=== PATIENT | female | born 2005 | race Hispanic/Latino ===

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

== ENCOUNTER → 2024-01-10 11:29 | Outpatient (CLI) | payer OTHER, SELFPAY ==
[2024-01-10 13:28] LABS: Hematocrit 35.1 % (36-46); Hemoglobin 11.9 g/dL (12.0-16.0); Mean Corpuscular HGB Conc 33.8 % (30-36); Mean Corpuscular Hemoglobin 29.3 PG (26-34); Mean Corpuscular Volume 86.8 fL (80-100); Platelet Count 316 X10^3/uL (150-400); Red Blood Cell Count 4.05 X10^6/uL (4.0-5.2); Red Cell Distribution Width 13.1 % (11.6-14.8); White Blood Cell Count 11.1 X10^3/uL (4.5-11.0)
[2024-01-10 13:52] LABS: GTT (PREG) 1 Hour PP 50gm Dose 100 mg/dL (76-139)
== END ==
PROVIDERS: Family Provider Family Medicine; PCP Family Medicine; Referring Provider Family Medicine; Visit Provider Family Medicine
DX: Z34.80 Encounter for supervision of other normal pregnancy, unspecified trimester (principal)
CPT/HCPCS: 36415; 82950; 85027

== ENCOUNTER 2024-01-18 21:10 | Outpatient (CLI) | payer OTHER, SELFPAY ==
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
== END 2024-01-18 22:25 | disposition home or self-care (01) ==
LOC: OB 01-22 10:27
PROVIDERS: Family Provider Specialist; PCP Specialist; Referring Provider Specialist; Visit Provider Specialist
DX: O26.892 Other specified pregnancy related conditions, second trimester (principal); W18.30XA Fall on same level, unspecified, initial encounter; Z3A.27 27 weeks gestation of pregnancy
CPT/HCPCS: 59025; G0378; G0379

== ENCOUNTER 2024-01-19 00:32 | Emergency (ER) | payer OTHER, SELFPAY ==
[2024-01-19 00:49] VITALS: BP 117/63; PULSE 92; RESP 18; TEMP 36.2; O2SAT 98; BMI 34.9
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
[2024-01-19] MEDS: LIDOCAINE 2% (GLYDO) 6 ML GEL TOP (02:23)
[2024-01-19] MEDS: ACETAMINOPHEN 325 MG TABLET 975 MG PO (02:23)
== END 2024-01-19 02:24 | disposition home or self-care (01) ==
PROVIDERS: Emergency Provider Emergency Medicine; Family Provider Specialist; PCP Specialist
DX: O26.893 Other specified pregnancy related conditions, third trimester (principal); S80.212A Abrasion, left knee, initial encounter; S80.211A Abrasion, right knee, initial encounter; Z3A.28 28 weeks gestation of pregnancy; W01.0XXA Fall on same level from slipping, tripping and stumbling without subsequent striking against object, initial encounter; Y93.02 Activity, running
CPT/HCPCS: 99283

== ENCOUNTER → 2024-02-22 12:00 | Outpatient (CLI) | payer OTHER, SELFPAY ==
[2024-02-22 12:49] LABS: Add Manual Diff / Slide Review NO; Basophils Absolute Auto 0 /uL (0-100); Basophils Percent Auto 0.3 % (0-2); Eosinophils Absolute Auto 100 /uL (0-450); Eosinophils Percent Auto 0.7 % (2-4); Hemoglobin 11.8 g/dL (12.0-16.0); Lymphocytes Absolute Auto 2200 /uL (1100-4500); Lymphocytes Percent Auto 20.6 % (25-40); Mean Corpuscular HGB Conc 33.6 % (30-36); Mean Corpuscular Hemoglobin 27.9 PG (26-34); Mean Corpuscular Volume 82.8 fL (80-100); Monocytes Absolute Auto 500 /uL (0-900); Monocytes Percent Auto 4.7 % (3-14); Neutrophils Absolute Auto 7700 /uL (1500-7000); Neutrophils Percent Auto 73.7 % (50-75); Platelet Count 288 X10^3/uL (150-400); Red Blood Cell Count 4.23 X10^6/uL (4.0-5.2); Red Cell Distribution Width 13.9 % (11.6-14.8); White Blood Cell Count 10.4 X10^3/uL (4.5-11.0)
[2024-02-22 13:09] LABS: HEMOLYSIS < 15 (0-50); Iron 46 ug/dL (37-170)
[2024-02-22 13:20] LABS: Percent Iron Saturation 8 % (15-50); Total Iron Binding Capacity 577 ug/dL (265-497); Transferrin 480 mg/dL (206-381)
[2024-02-22 13:48] LABS: Ferritin 4 ng/mL (6-137)
== END ==
PROVIDERS: Family Provider Specialist; PCP Family Medicine; Referring Provider Family Medicine; Visit Provider Family Medicine
DX: Z34.80 Encounter for supervision of other normal pregnancy, unspecified trimester (principal)
CPT/HCPCS: 36415; 82728; 83540; 83550; 85025

== ENCOUNTER 2024-03-03 18:35 | Emergency (ER) | payer OTHER, SELFPAY ==
[2024-03-03 18:45] VITALS: BP 126/81; PULSE 92; RESP 16; TEMP 37.2; O2SAT 98; BMI 36.8
[2024-03-03 19:23] LABS: COVID19 -Nasal RAPID Negative (Negative)
[2024-03-03 19:47] LABS: Alanine Aminotransferase 18 IU/L (<35); Albumin 3.6 g/dL (3.5-5.0); Alkaline Phosphatase 125 U/L (38-126); Aspartate Aminotransferase 21 IU/L (14-36); BUN Creatinine Ratio 17.9 (6-22); Bilirubin Total 0.3 mg/dL (0.2-1.3); Blood Urea Nitrogen 7 mg/dL (7-17); Calcium 8.8 mg/dL (8.4-10.2); Carbon Dioxide 17 mmol/L (22-32); Chloride 110 mmol/L (98-107); Estimated Glomerular Filt Rate > 60 mL/min (>60); Globulin 3.6 g/dL (1.7-4.1); Glucose 91 mg/dL (70-100); HEMOLYSIS < 15 (0-50); Lipase 38 U/L (23-300); Potassium 3.9 mmol/L (3.4-5.1); Sodium 134 mmol/L (137-145); Total Protein 7.2 g/dL (6.3-8.2)
[2024-03-03 19:49] LABS: Add Manual Diff / Slide Review NO; Basophils Absolute Auto 100 /uL (0-100); Basophils Percent Auto 0.5 % (0-2); Eosinophils Absolute Auto 0 /uL (0-450); Eosinophils Percent Auto 0.2 % (2-4); Hematocrit 35.7 % (36-46); Hemoglobin 11.7 g/dL (12.0-16.0); Lymphocytes Absolute Auto 1700 /uL (1100-4500); Lymphocytes Percent Auto 14.8 % (25-40); Mean Corpuscular HGB Conc 32.8 % (30-36); Mean Corpuscular Hemoglobin 27.1 PG (26-34); Mean Corpuscular Volume 82.6 fL (80-100); Monocytes Absolute Auto 500 /uL (0-900); Monocytes Percent Auto 4.3 % (3-14); Neutrophils Absolute Auto 9100 /uL (1500-7000); Neutrophils Percent Auto 80.2 % (50-75); Platelet Count 302 X10^3/uL (150-400); Red Blood Cell Count 4.32 X10^6/uL (4.0-5.2); Red Cell Distribution Width 13.9 % (11.6-14.8); White Blood Cell Count 11.3 X10^3/uL (4.5-11.0)
[2024-03-03] MEDS: SODIUM CHLORIDE 0.9% 1,000 ML 1000 ML IV (19:59)
[2024-03-03 20:27] VITALS: PULSE 68; O2SAT 99
[2024-03-03 20:30] VITALS: PULSE 70; O2SAT 99
[2024-03-03 20:49] VITALS: BP 118/67; PULSE 87; O2SAT 99
--- NOTE | 2024-03-03 20:58 | PC.NURSE ---
ambulated to the restroom and did not appear to be unsteady with her gait.
[2024-03-03 21:19] LABS: Ictotest Urine Negative (Negative)
[2024-03-03 21:21] LABS: Bacteria Urine Occasional (0-1); RBC Urine None Seen (0-5/HPF); Squamous Epithelial Cell Urine 0-1 /HPF (0-5/HPF); Urine Volume 10mL (spun); WBC Urine 5-10/HPF (0-5/HPF)
[2024-03-03 21:22] LABS: Mucus Urine 3+ (Negative)
[2024-03-03 21:24] LABS: Culture Indicated Urine Specimen Cultured
--- NOTE | 2024-03-03 22:04 | ED.ABDPAIN ---
HPI - Abdominal Pain General Chief Complaint: Dizziness Stated Complaint: 34 weeks ,unable to keep water down Time Seen by Provider: 03/03/24 19:47 Source: patient Mode of arrival: Ambulatory History of Present Illness HPI narrative: Patient is a 18-year-old female currently 34 weeks presenting today with nausea vomiting. He reports that she only had abdominal pain when she was vomiting. She is Zofran at home she vomited despite it. No diarrhea no fever no chills no chest pain palpitations or other symptoms. She has no vaginal discharge. She has been receiving care with . No complications with . She reports that she used to get UTIs frequently before she was . Related Data Home Medications Medication Instructions Recorded Confirmed vitamin-ferrous sulfate tab PO 09/14/23 02/22/24 27 mg iron-folic acid 0.8 mg tablet Previous Rx's Medication Instructions Recorded cetirizine 10 mg capsule (Zyrtec) 10 mg PO DAILY PRN allergy 12/27/23 symptoms #30 caps hydrocortisone 1 % lotion 1 applic topical BID PRN Eczema 12/27/23 #120 mL metoclopramide HCl 5 mg tablet 5 mg PO QAC #30 tabs 12/27/23 (Reglan) famotidine 20 mg tablet 20 mg PO DAILY #30 tabs 01/22/24 sertraline 25 mg tablet 25 mg PO DAILY #90 tabs 02/01/24 ondansetron 4 mg disintegrating 4 mg PO Q8H #60 tabs 02/08/24 tablet cephalexin 500 mg capsule 500 mg PO BID 7 days #14 caps 03/03/24 ondansetron 4 mg disintegrating 4 mg PO Q8H PRN nausea and 03/03/24 tablet vomiting #10 tabs Allergies Allergy/AdvReac Type Severity Reaction Status Date / Time adhesive Allergy Blister Verified 02/22/24 11:13 Patient History Medical History Unilateral headache Anxiety Intentional self-harm Depression SAB (spontaneous ) (~04/2023) Acute streptococcal pharyngitis Surgical History [place] teeth extracted (~08/2022) Family History Mother Previous section Bipolar disorder Gestational diabetes Anemia affecting Mental health problem Father Family estrangement Mental health problem Grandmother Dental disease Family/Other Down syndrome Sister Mental health problem Grandfather History of heart disease Hyperlipidemia Hypertension Grandfather Hyperlipidemia Stroke Social History marital status: number of children: 0 household members: spouse lives independently: Yes caregiver/support person: No housing: apartment pets and animals: Yes (2 cats, managing litter box) education level: high school occupational status: unemployed current occupational exposures/hazards: No special juan needs: No travel history: recent seatbelt use: always water heater temp set < 120 deg: Yes working smoke detector in home: Yes fire extinguisher in home: No carbon monox detector in home: Yes firearms in home: No do you feel safe at home: Yes Smoking Status: Former smoker Tobacco: How many years used: 1 second hand exposure: Yes (mother smokes, but isn't around pt much) alcohol intake: former substance use type: marijuana during the past year weight has: other well-balanced diet: about half the time daily servings fruits/ve-4 caffeine: No Type(s) of exercise: walking frequency: 3-4 times per week Smoking Status: Former smoker alcohol intake frequency: other Substance Use Type: marijuana Exam Initial Vital Signs Initial Vital Signs: Vital Signs Temperature 99.0 F 03/03/24 18:45 Pulse Rate 92 H 03/03/24 18:45 Respiratory Rate 16 03/03/24 18:45 Blood Pressure 126/81 03/03/24 18:45 Pulse Oximetry 98 03/03/24 18:45 Oxygen Delivery Method Room Air 03/03/24 18:45 GENERAL: Alert well-appearing 18-year-old female she has received IV fluids and Zofran at this point and in no acute distress. HEENT: Head atraumatic,EOMI, pupils reactive, face symmetric, moist mucous membranes CARDIOVASCULAR: Regular rate and rhythm without murmurs, rubs or gallops. RESPIRATORY: Breath sounds equal bilaterally, no wheezes rales or rhonchi. ABDOMEN: Soft, gravid nontender EXTREMITIES: Normal range of motion, no clubbing or edema. Neurovascularly intact NEUROLOGICAL: Alert and oriented x4.Normal gait and speech. SKIN: Warm, dry, no laceration, no petechiae, no rashes or lesions. Course Orders Ordered: ED Orders 03/03/24 19:25 Complete Blood Count AUTO DIFF Stat Comprehensive Metabolic Panel Stat Lipase Stat 03/03/24 21:05 Ictotest Urine Stat Urine Culture Stat Urine Microscopic Stat Discontinued Medications Sodium Chloride (Normal Saline 0.9%) 1,000 mls @ 1,000 mls/hr IV BOLUS ONE Stop: 03/03/24 19:52 Last Infusion: 03/03/24 20:25 Dose: Infused Documented By: Admin: 03/03/24 19:59 Dose: 1,000 mls/hr Documented By: ABHINAV Ceftriaxone Sodium 1,000 mg/ (Sodium Chloride) 100 mls @ 200 mls/hr IV NOW ONE Stop: 03/03/24 22:11 Last Infusion: 03/03/24 23:14 Dose: Infused Documented By: Admin: 03/03/24 22:32 Dose: 200 mls/hr Documented By: ELISSA Ondansetron HCl (Ondansetron 4 Mg/2 Ml Inj) 4 mg IV NOW PRN PRN Reason: Nausea And Vomiting Ondansetron HCl (Ondansetron 4 Mg Odt) 4 mg PO NOW PRN PRN Reason: Nausea And Vomiting Vital Signs Vital signs: Vital Signs - 8 hr 03/03/24 20:27 03/03/24 20:30 03/03/24 20:49 Pulse Rate 68 70 Respiratory Rate Blood Pressure 118/67 Pulse Oximetry 99 99 Oxygen Delivery Method 03/03/24 20:49 03/03/24 22:25 03/03/24 23:08 Pulse Rate 87 65 80 Respiratory Rate 18 18 Blood Pressure 128/68 102/55 L Pulse Oximetry 99 99 98 Oxygen Delivery Method Room Air Room Air MDM - Abdominal Pain Lab Data 03/03/24 19:25 03/03/24 19:25 Labs: Lab Results 03/03/24 03/03/24 03/03/24 Range/Units 18:48 19:25 21:05 WBC 11.3 H (4.5-11.0) X10^3/uL RBC 4.32 (4.0-5.2) X10^6/uL Hgb 11.7 L (12.0-16.0) g/dL Hct 35.7 L (36-46) % MCV 82.6 (80-100) fL MCH 27.1 (26-34) PG MCHC 32.8 (30-36) % RDW 13.9 (11.6-14.8) % Plt Count 302 (150-400) X10^3/uL Neut % (Auto) 80.2 H (50-75) % Lymph % (Auto) 14.8 L (25-40) % Upson % (Auto) 4.3 (3-14) % Eos % (Auto) 0.2 L (2-4) % Baso % (Auto) 0.5 (0-2) % Neut # (Auto) 9100 H (4124-4092) /uL Lymph # (Auto) 1700 (6587-3842) /uL Upson # (Auto) 500 (0-900) /uL Eos # (Auto) 0 (0-450) /uL Baso # (Auto) 100 (0-100) /uL Sodium 134 L (137-145) mmol/L Potassium 3.9 (3.4-5.1) mmol/L Chloride 110 H (98-107) mmol/L Carbon Dioxide 17 L (22-32) mmol/L BUN 7 (7-17) mg/dL Creatinine 0.39 L (0.52-1.04) mg/dL Estimated GFR > 60 (>60) mL/min BUN/Creatinine Ratio 17.9 (6-22) Glucose 91 (70-100) mg/dL Calcium 8.8 (8.4-10.2) mg/dL Total Bilirubin 0.3 (0.2-1.3) mg/dL AST 21 (14-36) IU/L ALT 18 (<35) IU/L Alkaline Phosphatase 125 (38-126) U/L Total Protein 7.2 (6.3-8.2) g/dL Albumin 3.6 (3.5-5.0) g/dL Globulin 3.6 (1.7-4.1) g/dL Albumin/Globulin Ratio 1.0 (1.0-2.8) Lipase 38 (23-300) U/L Ur Bilirubin Confirm Negative (Negative) Urine RBC None seen (0-5/HPF) Urine WBC 5-10/hpf H (0-5/HPF) Ur Squamous Epith Cells 0-1 /hpf (0-5/HPF) Urine Bacteria Occasional (0-1) (None) Urine Mucus 3+ H (Negative) Ur Culture Indicated? Specimen cultured Vol Urine Centrifuged 10ml (spun) SARS-CoV-2 (PCR) Negative (Negative) Point of care testing: Urine Dip Bedside Urine Glucose Negative Bedside Urine Bilirubin + 1 Bedside Urine Ketone ++ 40 Urine Specific [place] 1.015 Bedside Urine Occult Blood - Negative Bedside Urine pH 6.5 Bedside Urine Protein + 30 Bedside Urine Urobilinogen - Negative Bedside Urine Nitrite - Negative Bedside Urine Leukocytes - Negative Esterase MDM Narrative Medical decision making narrative: Patient 18-year-old female presenting today with nausea vomiting. Currently 34 weeks no complications with . Unable to keep anything down she is afebrile. No significant abdominal pain. Blood work has been reviewed mild leukocytosis 11.3 which could be considered normal in , anemia stable hemoglobin 11.7 hematocrit 35.7 previously 11.8 and 35.0, sodium 134 potassium 3.9, chloride 110, carbon dioxide 17, BUN 7, creatinine 0.3, glucose 91 AST 21 ALT 18 bili 0.3 heart tone 146 Patient presenting today with nausea vomiting. She does have some bacteria in her urine but no significant leukocytes or nitrates. Low-grade temp of 99?. Blood pressure is within normal limits no concern for preeclampsia urine was also positive for protein but she has no swelling in her legs and a normal blood pressure. She is given IV fluids Zofran and Rocephin He has no evidence of sepsis she overall appears well Discharge Plan Departure Patient Disposition: Home Clinical Impression: Urinary tract infection affecting Instructions: DI for Urinary Tract Infection (UTI) Activity Restrictions/Additional Instructions: *You have been diagnosed with UTI *What to do: At this time increase fluids as tolerated. Please follow-up with your OB team *Continue to take medications as directed Zofran 4 mg every 8 hours for nausea or vomiting Cephalexin 500 mg twice a day for 7 days *Follow up with your primary care provider in 2-3 days or call [phone] *Return to ER if you should have persistent vomiting abdominal pain vaginal discharge or any new, worsening or concerning symptoms Prescriptions: New cephalexin 500 mg capsule 500 mg PO BID 7 Days Qty: 14 0RF ondansetron 4 mg tablet,disintegrating 4 mg PO Q8H PRN (Reason: nausea and vomiting) Qty: 10 0RF No Action ondansetron 4 mg tablet,disintegrating 4 mg PO Q8H Qty: 60 2RF hydrocortisone 1 % lotion 1 applic topical BID PRN (Reason: Eczema ) Qty: 120 0RF Zyrtec 10 mg capsule 10 mg PO DAILY PRN (Reason: allergy symptoms) Qty: 30 0RF metoclopramide HCl [Reglan] 5 mg tablet 5 mg PO QAC Qty: 30 0RF Rx Instructions: administer 30 minutes before meals famotidine 20 mg tablet 20 mg PO DAILY Qty: 30 0RF sertraline 25 mg tablet 25 mg PO DAILY Qty: 90 4RF vit-ferrous sulfat-FA 27 mg iron- 0.8 mg tablet PO Referrals: Raquel Gill MD [Primary Care Provider] - Stand Alone Forms: Patient Portal/API
[2024-03-03 22:25] VITALS: BP 128/68; PULSE 65; RESP 18; O2SAT 99
[2024-03-03] MEDS: cefTRIAXone 1,000 MG in SODIUM CHLORIDE 0.9% 100 ML 200 MG IV (22:32)
[2024-03-03 23:08] VITALS: BP 102/55; PULSE 80; RESP 18; O2SAT 98
== END 2024-03-03 23:17 | disposition home or self-care (01) ==
PROVIDERS: Emergency Provider Emergency Medicine; Family Provider Specialist; PCP Family Medicine
DX: O23.43 Unspecified infection of urinary tract in pregnancy, third trimester (principal); N39.0 Urinary tract infection, site not specified; Z3A.34 34 weeks gestation of pregnancy
CPT/HCPCS: 36415; 80053; 81003; 81015; 83690; 85025; 87086; 87635; 96365; 99284; J0696

== ENCOUNTER 2024-03-07 09:00 | Outpatient (RCR) | payer OTHER, SELFPAY ==
--- NOTE | 2024-02-06 15:45 | PT.OPPOC ---
Physical, Occupational & Speech Therapy At [facility] Current Diagnoses Pain in left hip (02/06/24) Stiffness of left hip, not elsewhere classified (02/06/24) Other lack of coordination (02/06/24) Weakness (02/06/24) Visit Care Team Role Provider Type Pooja Castillo MD Family Provider Physician Specialty: REFRIGERATION SERVICE TECHNICIAN Address: [address] [place] [address], [address] Email: [email or web address] Raquel Gill MD Attending Provider Physician Primary Care Provider Referring Provider Specialty: Family Practice REFRIGERATION SERVICE TECHNICIAN Address: [address] [place], [address] Fax: Email: [email or web address] Plan Of Care PT-OP-B Current Condition Start: 02/06/24 11:18 Freq: Status: Active Protocol: Document 02/06/24 11:18 NM (Rec: 02/06/24 12:23 NM [id number]) Current Condition History of Current Condition Onset Date 3 years ago Current Complaints pain, mobility, walking, transfers History of Current Condition Pt presents with L hip pain. She happened 3 years ago at running in a [employer] meet. She has never had PT. However, pt was had difficulty with walking, had to keep it straight. States that it hurt to flex hip. She was given PT for exercises (hip flexors, stretches); worse with hip flexion. Eased with hip abduction. Continued to do sports after a few week rest. She reports worse with . States that feels deep in her groin. She also fell on 01/17, was running down hill to help her sister. Fell primarily on her L leg, states hip has been hurting worse. Pt is due in March (late); currently 30 weeks. States is going well. Pt reports difficulty with in/out (harder to get out) tub, walking long distances, running (no longer running), hiking (uphill), car transfers (low better, worse with truck ), can stand 1-2 hours before leg flare up. She reports her L hip catches and locks, feels it pop; usually feels it after walking or standing or long strenuous activities. Pt reports that was her first season of [place] Prior Treatments and Tests States has had x rays- no fractures, no tears in muscle Treatment Goals Patient/Caregiver Goals figure out what's wrong and how to manage it better PT-OP-T Assessment and Plan Start: 02/06/24 11:18 Freq: Status: Active Protocol: Document 02/06/24 11:18 NM (Rec: 02/06/24 12:23 NM [id number]) Physical Therapy Assessment Rehab Potential Rehabilitation Potential Good Evaluation Complexity Number of Personal Factors/Comorbidities 3 or More Number of Body Systems Impaired 3 Clinical Presentation at Evaluation Evolving Impairments Impairments Activity Tolerance,Balance, Functional Activities, Functional Mobility,Gait, Integument,Pain,Posture,ROM, Soft Tissue Mobility,Strength, Transfers Other Concerns Barriers to Rehabilitation Pt is currently 30 weeks , will be moving after delivery Goals Four Impairment standing Prison Goal (LTG) Pt will report that she is able to stand at least 2 hours without increase in baseline pain in order to be able to take care of her infant after LTG Duration 10 weeks Three Impairment transfers Production Assembly Operator Goal (LTG) Pt will report that she is able to transfer in/out of tub without increase in baseline pain during at least 75% of attempts in order to demonstrate improved QOL and symptom management LTG Duration 10 weeks Two Impairment hip strength: 4-/5 MMT globally Short Term Goal (STG) Pt will improve L hip strength to at least 4/5 MMT in order to demonstrate improved hip strength for gait, balance, activity tolerance, and ADLs STG Duration 6 weeks Prison Goal (LTG) Pt will improve L hip strength to at least 4+/5 MMT in order to demonstrate improved hip strength for gait, balance, activity tolerance, and ADLs LTG Duration 10 weeks One Impairment LEFS- 38/80 Production Assembly Operator Goal (LTG) Pt will improve LEFS score by at least 9 points (1 MCID) in order to demonstrate improve activity tolerance and symptom management LTG Duration 10 weeks Assessment Summary Assessment Pt is a 18 y.o. female presenting with L hip pain consistent with labral pathology. Pt's pain is chronic, beginning 3 years ago when running a race; her pain recently was exacerbated again with . Pt reports clicking, locking, and catching in her L hip. She has impairments in gait, ROM, strength, pain management, activity tolerance, and ability to perform ADLs. She is currently 30 weeks with her 1st child. Pt's pain is reproduced with trunk flexion and R lateral flexion/ rotation; her symptoms are also reproduced with sitting, standing, ambulating, resisted hip flex/ext/abd/add/ER and both active/passive hip flex/ ER/IR. Pt is also positive for labral special tests. She has not had imaging recently. Due to and symptom reproduction with lumbar AROM, pt will be further assessed in future sessions to further rule out lumbar spine involvement, especially in L3. PT educated pt on exam findings and plan of care, initiating gentle quadruped rock backs for ROM, which pt tolerated well. She would benefit from skilled PT for progressive hip/trunk/pelvic floor strengthening and ROM in order to improve symptom management, activity tolerance , and QOL. Physical Therapy Plan Frequency and Duration Frequency of Treatment 2x/Week Duration of treatment (weeks) 10 Plan of Care Start Date 02/06/24 Plan of Care End Date 04/19/24 Therapeutic Interventions Therapeutic Interventions Balance Training,Gait Training ,Home Exercise Program,Manual Therapy,Neuromuscular Re- education,Patient/Caregiver Education,Self-Care/Home Management,Sensory Integration ,Soft Tissue Mobilization, Therapeutic Activities, Therapeutic Exercises Modalities Cold Pack/Ice Massage,Electric Stimulation,Hot Packs Other Therapeutic Interventions taping allergy no mobilizations due to Gentle MET only Next Visit Focus/Plan Next Note Type Treatment Note Next Visit Plan check L3 rotation in sitting or sidelying isometric clam, hip ext, HSC somali ball: ppt, pelvic mobility Plan of Care Dates Plan of Care Start Date 02/06/24 Plan of Care End Date 04/19/24 Electronically Signed by: Cheryl Solis, PT 02/07/24 [id number] If you are in agreement with this Plan of Care, please return a signed and dated copy. I have reviewed this Plan of Care and certify that the skilled therapy services above are required to meet the patient?s needs. Physician Signature Date Printed Name and Credentials Clinical Instructor Signature Printed Name and Credentials
--- NOTE | 2024-02-06 15:45 | PT.OIE ---
Current Diagnoses Pain in left hip (02/06/24) Stiffness of left hip, not elsewhere classified (02/06/24) Other lack of coordination (02/06/24) Weakness (02/06/24) Past Medical History (Last Updated 10/06/23 @ 17:22 by Raquel Gill MD) Acute streptococcal pharyngitis Anxiety Depression Intentional self-harm SAB (spontaneous ) (~04/2023) Unilateral headache Past Surgical History (Last Updated 09/14/23 @ 08:35 by Flora Isaac RN) [place] teeth extracted (~08/2022) Visit Care Team Role Provider Type Pooja Castillo MD Family Provider Physician Specialty: DRY KILN OPERATOR Address: [address] [place] [address], [id number] Email: [email or web address] Raquel Gill MD Attending Provider Physician Primary Care Provider Referring Provider Specialty: Family Practice DRY KILN OPERATOR Address: [address] [place] [address], [id number] Fax: Email: [email or web address] Physical Therapy Initial Evaluation PT-OP-A Visit Information Start: 02/06/24 11:18 Freq: Status: Active Protocol: Document 02/06/24 11:18 NM (Rec: 02/06/24 12:23 NM [id number]) Out-Patient Physical Therapy Visit Information Visit Information Visit Type Initial Evaluation Visit Start Time 11:18 Visit Stop Time 12:00 Visit Number 1 Evaluation Information Evaluation Date 02/06/24 Precautions Precautions - 3rd trimester: limit time in supine and monitor vitals in position PT-OP-B Current Condition Start: 02/06/24 11:18 Freq: Status: Active Protocol: Document 02/06/24 11:18 NM (Rec: 02/06/24 12:23 NM [id number]) Current Condition History of Current Condition Onset Date 3 years ago Current Complaints pain, mobility, walking, transfers History of Current Condition Pt presents with L hip pain. She happened 3 years ago at running in a [employer] meet. She has never had PT. However, pt was had difficulty with walking, had to keep it straight. States that it hurt to flex hip. She was given PT for exercises (hip flexors, stretches); worse with hip flexion. Eased with hip abduction. Continued to do sports after a few week rest. She reports worse with . States that feels deep in her groin. She also fell on 01/17, was running down hill to help her sister. Fell primarily on her L leg, states hip has been hurting worse. Pt is due in March (late); currently 30 weeks. States is going well. Pt reports difficulty with in/out (harder to get out) tub, walking long distances, running (no longer running), hiking (uphill), car transfers (low better, worse with truck ), can stand 1-2 hours before leg flare up. She reports her L hip catches and locks, feels it pop; usually feels it after walking or standing or long strenuous activities. Pt reports that was her first season of [facility] Prior Treatments and Tests States has had x rays- no fractures, no tears in muscle Treatment Goals Patient/Caregiver Goals figure out what's wrong and how to manage it better PT-OP-C Subjective Start: 02/06/24 11:18 Freq: Status: Active Protocol: Document 02/06/24 11:18 NM (Rec: 02/06/24 12:23 NM [id number]) OP-PT Subjective Patient Comments Patient Comments pt consents to participate in evaluation Patient Questionnaires Lower Extremity Functional Scale LEFS Score 38/80 OP-PT Pain Assessment Location L hip Pain Location Details anterior hip irvin joint, post hip Intensity 4 Scale Used Numeric (0 - 10) Description Aching,Chronic,Sharp Description- Other worse 5-6 Radiating Location to/from low back (goes with tylenol) Pain Aggravating Factors ADL's,Activity,Standing, Sitting,Walking,Stair Climbing ,Bending,Lifting Pain Alleviating Factors Medication,Position,Exercise Other Pain Alleviating Factors more comfortable seated in hip ER; hip abd; biofreeze PT-OP-E Functional Tests Start: 02/06/24 11:18 Freq: Status: Active Protocol: Document 02/06/24 11:18 NM (Rec: 02/06/24 12:23 NM [id number]) Functional Tests Five Times Sit to Stand Test Score 17 seconds Comments deep in groin, sore PT-OP-F Manual Assessment Start: 02/06/24 11:18 Freq: Status: Active Protocol: Document 02/06/24 11:18 NM (Rec: 02/06/24 17:11 NM [id number]) Manual Assessments Soft Tissue Assessment Soft Tissue Mobility Assessment Tenderness over L hip flexors, tightness in piriformis Joint Mobility Assessment Joint Mobility Assessment Mild clicking with labral testing on LLE PT-OP-G Mobility & Gait Start: 02/06/24 11:18 Freq: Status: Active Protocol: Document 02/06/24 11:18 NM (Rec: 02/06/24 17:11 NM [id number]) OP Gait Assessment Gait Distance (Feet) 150 Gait Deviations General Gait Pattern Antalgic,Wide Based Gait Factors Limiting Gait Function Factors Limiting Gait Function Pain Comments Gait Comments Wide based gait with B hip ER and slight L pronation. Antalgic PT-OP-J Posture/Palpation/Skin Start: 02/06/24 11:18 Freq: Status: Active Protocol: Document 02/06/24 11:18 NM (Rec: 02/06/24 17:11 NM [id number]) Posture Evaluation Position Standing L-Spine Posture Increased Lordosis Shoulder Posture (L) Rounded,(R) Rounded Arm Posture (L) Neutral,(R) Neutral Pelvis Posture Anteriorly Tilted Weight Distribution Weight Shifted Right Hip Posture (L) Externally Rotated,(R) Externally Rotated Knee Posture (L) Genu Valgus,(R) Genu Valgus Ankle/Foot Posture (L) Pronated Palpation Assessment Location L hip Palpation Details Tenderness over anterior hip flexors, especially pectineus and proximal rectus femoris No tenderness but tightness of lumbar paraspinals and L glutes/piriformis PT-OP-K Range of Motion Start: 02/06/24 11:18 Freq: Status: Active Protocol: Document 02/06/24 11:18 NM (Rec: 02/06/24 12:23 NM [id number]) Lumbar Spine Range of Motion Lumbar Spine Active Percentage Flexion 90 Extension 100 Rotation Left 100 Rotation Right 100 Lateral Flexion Left 100 Lateral Flexion Right 100 Comments pain with R LF, flexion, R rotation Hip Goniometric Range of Motion Hip Right Flexion w/Knee Flexed 110 Extension 10 Abduction 25 Internal Rotation 30 External Rotation 30 Left Flexion w/Knee Flexed 99 Extension 5 Abduction 21 Internal Rotation 35 External Rotation 30 Comments pain with IR, flex, abd PT-OP-L Special Tests Start: 02/06/24 11:18 Freq: Status: Active Protocol: Document 02/06/24 11:18 NM (Rec: 02/06/24 12:23 NM [id number]) Special Tests Hip Special Tests Log Roll Test Test Results + Scour Test Test Results + Posterior Labral Test Test Results + Anterior Labral Test Test Results + PT-OP-M Strength Start: 02/06/24 11:18 Freq: Status: Active Protocol: Document 02/06/24 11:18 NM (Rec: 02/06/24 12:23 NM [id number]) Hip Strength Hip Manual Muscle Testing Right Flexion (L2) 4+ Good+ Extension (S1) 4+ Good+ Abduction 4+ Good+ Adduction 4+ Good+ External Rotation 4+ Good+ Internal Rotation 4+ Good+ Left Flexion (L2) 4- Good- Extension (S1) 4- Good- Abduction 4- Good- Adduction 4- Good- External Rotation 4- Good- Internal Rotation 4- Good- Comments pain with flexion and IR, abd; mild pain with ER, HS, ext Knee Strength Knee Manual Muscle Testing Left Flexion (S2) 4 Good Extension (L3) 4 Good Right Flexion (S2) 4 Good Extension (L3) 4 Good PT-OP-Q Treatments Start: 02/06/24 11:18 Freq: Status: Active Protocol: Document 02/06/24 11:18 NM (Rec: 02/06/24 12:23 NM [id number]) Therapeutic Exercises Prone Exercises quadruped Prone Exercise Name 1. neutral rock back, 2. hip IR rock back, 3. hip ER rock back Reps/Minutes 10 ea Comments cued pain free range; pain only with hip IR in end range PT-OP-T Assessment and Plan Start: 02/06/24 11:18 Freq: Status: Active Protocol: Document 02/06/24 11:18 NM (Rec: 02/06/24 12:23 NM [id number]) Physical Therapy Assessment Rehab Potential Rehabilitation Potential Good Evaluation Complexity Number of Personal Factors/Comorbidities 3 or More Number of Body Systems Impaired 3 Clinical Presentation at Evaluation Evolving Impairments Impairments Activity Tolerance,Balance, Functional Activities, Functional Mobility,Gait, Integument,Pain,Posture,ROM, Soft Tissue Mobility,Strength, Transfers Other Concerns Barriers to Rehabilitation Pt is currently 30 weeks , will be moving after delivery Goals Four Impairment standing Employment Advisor Goal (LTG) Pt will report that she is able to stand at least 2 hours without increase in baseline pain in order to be able to take care of her infant after LTG Duration 10 weeks Three Impairment transfers Senior Living Goal (LTG) Pt will report that she is able to transfer in/out of tub without increase in baseline pain during at least 75% of attempts in order to demonstrate improved QOL and symptom management LTG Duration 10 weeks Two Impairment hip strength: 4-/5 MMT globally Short Term Goal (STG) Pt will improve L hip strength to at least 4/5 MMT in order to demonstrate improved hip strength for gait, balance, activity tolerance, and ADLs STG Duration 6 weeks Employment Advisor Goal (LTG) Pt will improve L hip strength to at least 4+/5 MMT in order to demonstrate improved hip strength for gait, balance, activity tolerance, and ADLs LTG Duration 10 weeks One Impairment LEFS- 38/80 Senior Living Goal (LTG) Pt will improve LEFS score by at least 9 points (1 MCID) in order to demonstrate improve activity tolerance and symptom management LTG Duration 10 weeks Assessment Summary Assessment Pt is a 18 y.o. female presenting with L hip pain consistent with labral pathology. Pt's pain is chronic, beginning 3 years ago when running a race; her pain recently was exacerbated again with . Pt reports clicking, locking, and catching in her L hip. She has impairments in gait, ROM, strength, pain management, activity tolerance, and ability to perform ADLs. She is currently 30 weeks with her 1st child. Pt's pain is reproduced with trunk flexion and R lateral flexion/ rotation; her symptoms are also reproduced with sitting, standing, ambulating, resisted hip flex/ext/abd/add/ER and both active/passive hip flex/ ER/IR. Pt is also positive for labral special tests. She has not had imaging recently. Due to and symptom reproduction with lumbar AROM, pt will be further assessed in future sessions to further rule out lumbar spine involvement, especially in L3. PT educated pt on exam findings and plan of care, initiating gentle quadruped rock backs for ROM, which pt tolerated well. She would benefit from skilled PT for progressive hip/trunk/pelvic floor strengthening and ROM in order to improve symptom management, activity tolerance , and QOL. Physical Therapy Plan Frequency and Duration Frequency of Treatment 2x/Week Duration of treatment (weeks) 10 Plan of Care Start Date 02/06/24 Plan of Care End Date 04/19/24 Therapeutic Interventions Therapeutic Interventions Balance Training,Gait Training ,Home Exercise Program,Manual Therapy,Neuromuscular Re- education,Patient/Caregiver Education,Self-Care/Home Management,Sensory Integration ,Soft Tissue Mobilization, Therapeutic Activities, Therapeutic Exercises Modalities Cold Pack/Ice Massage,Electric Stimulation,Hot Packs Other Therapeutic Interventions taping allergy no mobilizations due to Gentle MET only Next Visit Focus/Plan Next Note Type Treatment Note Next Visit Plan check L3 rotation in sitting or sidelying isometric clam, hip ext, HSC [place] islander ball: ppt, pelvic mobility
--- NOTE | 2024-02-09 12:16 | PT.OTN ---
Current Diagnoses Pain in left hip (02/09/24) Stiffness of left hip, not elsewhere classified (02/09/24) Other lack of coordination (02/09/24) Weakness (02/09/24) Physical Therapy Treatment Note PT-OP-A Visit Information Start: 02/06/24 11:18 Freq: Status: Active Protocol: Document 02/09/24 11:13 NM (Rec: 02/09/24 12:16 NM [id number]) Out-Patient Physical Therapy Visit Information Visit Information Visit Type Treatment Note Visit Start Time 11:14 Visit Stop Time 11:54 Visit Number 2 Evaluation Information Evaluation Date 02/06/24 PT-OP-B Current Condition Start: 02/06/24 11:18 Freq: Status: Active Protocol: Document 02/06/24 11:18 NM (Rec: 02/06/24 12:23 NM [id number]) Current Condition History of Current Condition Onset Date 3 years ago Current Complaints pain, mobility, walking, transfers History of Current Condition Pt presents with L hip pain. She happened 3 years ago at running in a [employer] meet. She has never had PT. However, pt was had difficulty with walking, had to keep it straight. States that it hurt to flex hip. She was given PT for exercises (hip flexors, stretches); worse with hip flexion. Eased with hip abduction. Continued to do sports after a few week rest. She reports worse with . States that feels deep in her groin. She also fell on 01/17, was running down hill to help her sister. Fell primarily on her L leg, states hip has been hurting worse. Pt is due in March (late); currently 30 weeks. States is going well. Pt reports difficulty with in/out (harder to get out) tub, walking long distances, running (no longer running), hiking (uphill), car transfers (low better, worse with truck ), can stand 1-2 hours before leg flare up. She reports her L hip catches and locks, feels it pop; usually feels it after walking or standing or long strenuous activities. Pt reports that was her first season of [facility] Prior Treatments and Tests States has had x rays- no fractures, no tears in muscle Treatment Goals Patient/Caregiver Goals figure out what's wrong and how to manage it better PT-OP-C Subjective Start: 02/06/24 11:18 Freq: Status: Active Protocol: Document 02/09/24 11:13 NM (Rec: 02/09/24 12:16 NM [id number]) OP-PT Subjective Patient Comments Patient Comments Pt reports 4/10 L hip pain. She reports that she has had difficulty sleeping due to baby activity at ribs, poor sleep without . She tried exercises at home, no pain or discomfort as long as does not push into painful range. PT-OP-E Functional Tests Start: 02/06/24 11:18 Freq: Status: Active Protocol: Document 02/06/24 11:18 NM (Rec: 02/06/24 12:23 NM [id number]) Functional Tests Five Times Sit to Stand Test Score 17 seconds Comments deep in groin, sore PT-OP-F Manual Assessment Start: 02/06/24 11:18 Freq: Status: Active Protocol: Document 02/06/24 11:18 NM (Rec: 02/06/24 17:11 NM [id number]) Manual Assessments Soft Tissue Assessment Soft Tissue Mobility Assessment Tenderness over L hip flexors, tightness in piriformis Joint Mobility Assessment Joint Mobility Assessment Mild clicking with labral testing on LLE PT-OP-G Mobility & Gait Start: 02/06/24 11:18 Freq: Status: Active Protocol: Document 02/06/24 11:18 NM (Rec: 02/06/24 17:11 NM [id number]) OP Gait Assessment Gait Distance (Feet) 150 Gait Deviations General Gait Pattern Antalgic,Wide Based Gait Factors Limiting Gait Function Factors Limiting Gait Function Pain Comments Gait Comments Wide based gait with B hip ER and slight L pronation. Antalgic PT-OP-J Posture/Palpation/Skin Start: 02/06/24 11:18 Freq: Status: Active Protocol: Document 02/06/24 11:18 NM (Rec: 02/06/24 17:11 NM [id number]) Posture Evaluation Position Standing L-Spine Posture Increased Lordosis Shoulder Posture (L) Rounded,(R) Rounded Arm Posture (L) Neutral,(R) Neutral Pelvis Posture Anteriorly Tilted Weight Distribution Weight Shifted Right Hip Posture (L) Externally Rotated,(R) Externally Rotated Knee Posture (L) Genu Valgus,(R) Genu Valgus Ankle/Foot Posture (L) Pronated Palpation Assessment Location L hip Palpation Details Tenderness over anterior hip flexors, especially pectineus and proximal rectus femoris No tenderness but tightness of lumbar paraspinals and L glutes/piriformis PT-OP-K Range of Motion Start: 02/06/24 11:18 Freq: Status: Active Protocol: Document 02/06/24 11:18 NM (Rec: 02/06/24 12:23 NM [id number]) Lumbar Spine Range of Motion Lumbar Spine Active Percentage Flexion 90 Extension 100 Rotation Left 100 Rotation Right 100 Lateral Flexion Left 100 Lateral Flexion Right 100 Comments pain with R LF, flexion, R rotation Hip Goniometric Range of Motion Hip Right Flexion w/Knee Flexed 110 Extension 10 Abduction 25 Internal Rotation 30 External Rotation 30 Left Flexion w/Knee Flexed 99 Extension 5 Abduction 21 Internal Rotation 35 External Rotation 30 Comments pain with IR, flex, abd PT-OP-L Special Tests Start: 02/06/24 11:18 Freq: Status: Active Protocol: Document 02/06/24 11:18 NM (Rec: 02/06/24 12:23 NM [id number]) Special Tests Hip Special Tests Log Roll Test Test Results + Scour Test Test Results + Posterior Labral Test Test Results + Anterior Labral Test Test Results + PT-OP-M Strength Start: 02/06/24 11:18 Freq: Status: Active Protocol: Document 02/06/24 11:18 NM (Rec: 02/06/24 12:23 NM [id number]) Hip Strength Hip Manual Muscle Testing Right Flexion (L2) 4+ Good+ Extension (S1) 4+ Good+ Abduction 4+ Good+ Adduction 4+ Good+ External Rotation 4+ Good+ Internal Rotation 4+ Good+ Left Flexion (L2) 4- Good- Extension (S1) 4- Good- Abduction 4- Good- Adduction 4- Good- External Rotation 4- Good- Internal Rotation 4- Good- Comments pain with flexion and IR, abd; mild pain with ER, HS, ext Knee Strength Knee Manual Muscle Testing Left Flexion (S2) 4 Good Extension (L3) 4 Good Right Flexion (S2) 4 Good Extension (L3) 4 Good PT-OP-Q Treatments Start: 02/06/24 11:18 Freq: Status: Active Protocol: Document 02/09/24 11:13 NM (Rec: 02/09/24 12:16 NM [id number]) Therapeutic Exercises Sidelying Exercises hip abduction Side left Reps/Minutes 10 Comments feels in glute; denies hip pain in ant hip; challenging Sitting Exercises clam Side left Resistance level 2 band Reps/Minutes 10 Comments no hip pain hip abduction Sitting Exercise Name 1. isometric w/ hand, 2. isometric with band Side bilateral Reps/Minutes 1. 5x5, 2. 2x30 ea Comments no hip pain spanish ball Sitting Exercise Name 1. hip flexor stretch, 2. pelvic tilts Side bilateral Reps/Minutes 1. 2x30 ea, 2. 10, 3. Comments pain free Standing Exercises wall squat Standing Exercise Name mini squat Side bilateral Resistance level 2 band Equipment Used 65 cm ball Reps/Minutes 2x8 Comments small rom; reports no increase in hip pain Manual Therapy Treatment Consent Patient gave verbal consent for manual Yes treatment Soft Tissue Mobilization L hip Body Location hip flexors, adductors, QL, glutes, abductors, quad Mobilization Type Rolling,Strumming Intensity/Depth Superficial Body Position Sidelying Comments Monitored for pain. Tenderness along L hip flexors and proximal adductors, especially in groin. Tenderness reduced with soft tissue mobilization, palpable relaxation Other Other Manual Treatments No noticable rotation of lumbar spinous processes PT-OP-T Assessment and Plan Start: 02/06/24 11:18 Freq: Status: Active Protocol: Document 02/09/24 11:13 NM (Rec: 02/09/24 12:16 NM [id number]) Physical Therapy Assessment Goals Four Impairment standing Distance Education Director Goal (LTG) Pt will report that she is able to stand at least 2 hours without increase in baseline pain in order to be able to take care of her infant after LTG Duration 10 weeks Three Impairment transfers Distance Education Director Goal (LTG) Pt will report that she is able to transfer in/out of tub without increase in baseline pain during at least 75% of attempts in order to demonstrate improved QOL and symptom management LTG Duration 10 weeks Two Impairment hip strength: 4-/5 MMT globally Short Term Goal (STG) Pt will improve L hip strength to at least 4/5 MMT in order to demonstrate improved hip strength for gait, balance, activity tolerance, and ADLs STG Duration 6 weeks Care Home Goal (LTG) Pt will improve L hip strength to at least 4+/5 MMT in order to demonstrate improved hip strength for gait, balance, activity tolerance, and ADLs LTG Duration 10 weeks One Impairment LEFS- 38/80 Distance Education Director Goal (LTG) Pt will improve LEFS score by at least 9 points (1 MCID) in order to demonstrate improve activity tolerance and symptom management LTG Duration 10 weeks Assessment Summary Assessment Pt tolerated session well without any increase in hip pain. Good feedback to superficial soft tissue mobilization of hip flexors and QL. Pt has tenderness over hips flexors and adductors, but has palpable reduction in reported pain levels following soft tissue mobilization. Initiated gentle hip flexor stretch and pelvic mobility on spanish ball for flexibility. Pt responds well to stretching . Trialed isometric hip abduction, ER with both pt hand for resistance and band; pt has no increased pain when cued to maintain pain free ROM . Hip abduction is challenging and limited for pt. Pt would benefit from skilled PT for progressive hip strengthening and flexibility within pain free range in order to improve symptom management and activity tolerance. Physical Therapy Plan Frequency and Duration Frequency of Treatment 2x/Week Duration of treatment (weeks) 10 Plan of Care Start Date 02/06/24 Plan of Care End Date 04/19/24 Therapeutic Interventions Therapeutic Interventions Balance Training,Gait Training ,Home Exercise Program,Manual Therapy,Neuromuscular Re- education,Patient/Caregiver Education,Self-Care/Home Management,Sensory Integration ,Soft Tissue Mobilization, Therapeutic Activities, Therapeutic Exercises Modalities Cold Pack/Ice Massage Other Therapeutic Interventions taping allergy no mobilizations due to Gentle MET only Next Visit Focus/Plan Next Note Type Treatment Note Next Visit Plan pillow isometric clam in seated or short term supine, hip ext in standing, HSC seated or prone, LAQ, trial s/l quad/hip ext stretch, bridge hold w/ band. AROM- stool rot, hip circles prone: IR/ER AROM spanish ball: ppt, pelvic mobility, core (limit hip flex )
--- NOTE | 2024-02-09 12:16 | PT.OTN ---
Current Diagnoses Pain in left hip (02/09/24) Stiffness of left hip, not elsewhere classified (02/09/24) Other lack of coordination (02/09/24) Weakness (02/09/24) Physical Therapy Treatment Note PT-OP-A Visit Information Start: 02/06/24 11:18 Freq: Status: Active Protocol: Document 02/09/24 11:13 NM (Rec: 02/09/24 12:16 NM [id number]) Out-Patient Physical Therapy Visit Information Visit Information Visit Type Treatment Note Visit Start Time 11:14 Visit Stop Time 11:54 Visit Number 2 Evaluation Information Evaluation Date 02/06/24 PT-OP-B Current Condition Start: 02/06/24 11:18 Freq: Status: Active Protocol: Document 02/06/24 11:18 NM (Rec: 02/06/24 12:23 NM [id number]) Current Condition History of Current Condition Onset Date 3 years ago Current Complaints pain, mobility, walking, transfers History of Current Condition Pt presents with L hip pain. She happened 3 years ago at running in a [employer] meet. She has never had PT. However, pt was had difficulty with walking, had to keep it straight. States that it hurt to flex hip. She was given PT for exercises (hip flexors, stretches); worse with hip flexion. Eased with hip abduction. Continued to do sports after a few week rest. She reports worse with . States that feels deep in her groin. She also fell on 01/17, was running down hill to help her sister. Fell primarily on her L leg, states hip has been hurting worse. Pt is due in March (late); currently 30 weeks. States is going well. Pt reports difficulty with in/out (harder to get out) tub, walking long distances, running (no longer running), hiking (uphill), car transfers (low better, worse with truck ), can stand 1-2 hours before leg flare up. She reports her L hip catches and locks, feels it pop; usually feels it after walking or standing or long strenuous activities. Pt reports that was her first season of [facility] Prior Treatments and Tests States has had x rays- no fractures, no tears in muscle Treatment Goals Patient/Caregiver Goals figure out what's wrong and how to manage it better PT-OP-C Subjective Start: 02/06/24 11:18 Freq: Status: Active Protocol: Document 02/09/24 11:13 NM (Rec: 02/09/24 12:16 NM [id number]) OP-PT Subjective Patient Comments Patient Comments Pt reports 4/10 L hip pain. She reports that she has had difficulty sleeping due to baby activity at ribs, poor sleep without . She tried exercises at home, no pain or discomfort as long as does not push into painful range. PT-OP-E Functional Tests Start: 02/06/24 11:18 Freq: Status: Active Protocol: Document 02/06/24 11:18 NM (Rec: 02/06/24 12:23 NM [id number]) Functional Tests Five Times Sit to Stand Test Score 17 seconds Comments deep in groin, sore PT-OP-F Manual Assessment Start: 02/06/24 11:18 Freq: Status: Active Protocol: Document 02/06/24 11:18 NM (Rec: 02/06/24 17:11 NM [id number]) Manual Assessments Soft Tissue Assessment Soft Tissue Mobility Assessment Tenderness over L hip flexors, tightness in piriformis Joint Mobility Assessment Joint Mobility Assessment Mild clicking with labral testing on LLE PT-OP-G Mobility & Gait Start: 02/06/24 11:18 Freq: Status: Active Protocol: Document 02/06/24 11:18 NM (Rec: 02/06/24 17:11 NM [id number]) OP Gait Assessment Gait Distance (Feet) 150 Gait Deviations General Gait Pattern Antalgic,Wide Based Gait Factors Limiting Gait Function Factors Limiting Gait Function Pain Comments Gait Comments Wide based gait with B hip ER and slight L pronation. Antalgic PT-OP-J Posture/Palpation/Skin Start: 02/06/24 11:18 Freq: Status: Active Protocol: Document 02/06/24 11:18 NM (Rec: 02/06/24 17:11 NM [id number]) Posture Evaluation Position Standing L-Spine Posture Increased Lordosis Shoulder Posture (L) Rounded,(R) Rounded Arm Posture (L) Neutral,(R) Neutral Pelvis Posture Anteriorly Tilted Weight Distribution Weight Shifted Right Hip Posture (L) Externally Rotated,(R) Externally Rotated Knee Posture (L) Genu Valgus,(R) Genu Valgus Ankle/Foot Posture (L) Pronated Palpation Assessment Location L hip Palpation Details Tenderness over anterior hip flexors, especially pectineus and proximal rectus femoris No tenderness but tightness of lumbar paraspinals and L glutes/piriformis PT-OP-K Range of Motion Start: 02/06/24 11:18 Freq: Status: Active Protocol: Document 02/06/24 11:18 NM (Rec: 02/06/24 12:23 NM [id number]) Lumbar Spine Range of Motion Lumbar Spine Active Percentage Flexion 90 Extension 100 Rotation Left 100 Rotation Right 100 Lateral Flexion Left 100 Lateral Flexion Right 100 Comments pain with R LF, flexion, R rotation Hip Goniometric Range of Motion Hip Right Flexion w/Knee Flexed 110 Extension 10 Abduction 25 Internal Rotation 30 External Rotation 30 Left Flexion w/Knee Flexed 99 Extension 5 Abduction 21 Internal Rotation 35 External Rotation 30 Comments pain with IR, flex, abd PT-OP-L Special Tests Start: 02/06/24 11:18 Freq: Status: Active Protocol: Document 02/06/24 11:18 NM (Rec: 02/06/24 12:23 NM [id number]) Special Tests Hip Special Tests Log Roll Test Test Results + Scour Test Test Results + Posterior Labral Test Test Results + Anterior Labral Test Test Results + PT-OP-M Strength Start: 02/06/24 11:18 Freq: Status: Active Protocol: Document 02/06/24 11:18 NM (Rec: 02/06/24 12:23 NM [id number]) Hip Strength Hip Manual Muscle Testing Right Flexion (L2) 4+ Good+ Extension (S1) 4+ Good+ Abduction 4+ Good+ Adduction 4+ Good+ External Rotation 4+ Good+ Internal Rotation 4+ Good+ Left Flexion (L2) 4- Good- Extension (S1) 4- Good- Abduction 4- Good- Adduction 4- Good- External Rotation 4- Good- Internal Rotation 4- Good- Comments pain with flexion and IR, abd; mild pain with ER, HS, ext Knee Strength Knee Manual Muscle Testing Left Flexion (S2) 4 Good Extension (L3) 4 Good Right Flexion (S2) 4 Good Extension (L3) 4 Good PT-OP-Q Treatments Start: 02/06/24 11:18 Freq: Status: Active Protocol: Document 02/09/24 11:13 NM (Rec: 02/09/24 12:16 NM [id number]) Therapeutic Exercises Sidelying Exercises hip abduction Side left Reps/Minutes 10 Comments feels in glute; denies hip pain in ant hip; challenging Sitting Exercises clam Side left Resistance level 2 band Reps/Minutes 10 Comments no hip pain hip abduction Sitting Exercise Name 1. isometric w/ hand, 2. isometric with band Side bilateral Reps/Minutes 1. 5x5, 2. 2x30 ea Comments no hip pain zambian ball Sitting Exercise Name 1. hip flexor stretch, 2. pelvic tilts Side bilateral Reps/Minutes 1. 2x30 ea, 2. 10, 3. Comments pain free Standing Exercises wall squat Standing Exercise Name mini squat Side bilateral Resistance level 2 band Equipment Used 65 cm ball Reps/Minutes 2x8 Comments small rom; reports no increase in hip pain Manual Therapy Treatment Consent Patient gave verbal consent for manual Yes treatment Soft Tissue Mobilization L hip Body Location hip flexors, adductors, QL, glutes, abductors, quad Mobilization Type Rolling,Strumming Intensity/Depth Superficial Body Position Sidelying Comments Monitored for pain. Tenderness along L hip flexors and proximal adductors, especially in groin. Tenderness reduced with soft tissue mobilization, palpable relaxation Other Other Manual Treatments No noticable rotation of lumbar spinous processes PT-OP-T Assessment and Plan Start: 02/06/24 11:18 Freq: Status: Active Protocol: Document 02/09/24 11:13 NM (Rec: 02/09/24 12:16 NM [id number]) Physical Therapy Assessment Goals Four Impairment standing Dancer Or Choreographer Goal (LTG) Pt will report that she is able to stand at least 2 hours without increase in baseline pain in order to be able to take care of her infant after LTG Duration 10 weeks Three Impairment transfers Dancer Or Choreographer Goal (LTG) Pt will report that she is able to transfer in/out of tub without increase in baseline pain during at least 75% of attempts in order to demonstrate improved QOL and symptom management LTG Duration 10 weeks Two Impairment hip strength: 4-/5 MMT globally Short Term Goal (STG) Pt will improve L hip strength to at least 4/5 MMT in order to demonstrate improved hip strength for gait, balance, activity tolerance, and ADLs STG Duration 6 weeks Half-Way Goal (LTG) Pt will improve L hip strength to at least 4+/5 MMT in order to demonstrate improved hip strength for gait, balance, activity tolerance, and ADLs LTG Duration 10 weeks One Impairment LEFS- 38/80 Dancer Or Choreographer Goal (LTG) Pt will improve LEFS score by at least 9 points (1 MCID) in order to demonstrate improve activity tolerance and symptom management LTG Duration 10 weeks Assessment Summary Assessment Pt tolerated session well without any increase in hip pain. Good feedback to superficial soft tissue mobilization of hip flexors and QL. Pt has tenderness over hips flexors and adductors, but has palpable reduction in reported pain levels following soft tissue mobilization. Initiated gentle hip flexor stretch and pelvic mobility on zambian ball for flexibility. Pt responds well to stretching . Trialed isometric hip abduction, ER with both pt hand for resistance and band; pt has no increased pain when cued to maintain pain free ROM . Hip abduction is challenging and limited for pt. Pt would benefit from skilled PT for progressive hip strengthening and flexibility within pain free range in order to improve symptom management and activity tolerance. Physical Therapy Plan Frequency and Duration Frequency of Treatment 2x/Week Duration of treatment (weeks) 10 Plan of Care Start Date 02/06/24 Plan of Care End Date 04/19/24 Therapeutic Interventions Therapeutic Interventions Balance Training,Gait Training ,Home Exercise Program,Manual Therapy,Neuromuscular Re- education,Patient/Caregiver Education,Self-Care/Home Management,Sensory Integration ,Soft Tissue Mobilization, Therapeutic Activities, Therapeutic Exercises Modalities Cold Pack/Ice Massage,Hot Packs Other Therapeutic Interventions taping allergy no mobilizations due to Gentle MET only Next Visit Focus/Plan Next Note Type Treatment Note Next Visit Plan pillow isometric clam in seated or short term supine, hip ext in standing, HSC seated or prone, LAQ, trial s/l quad/hip ext stretch, bridge hold w/ band. AROM- stool rot, hip circles prone: IR/ER AROM zambian ball: ppt, pelvic mobility, core (limit hip flex )
--- NOTE | 2024-02-16 12:15 | PT.OTN ---
Current Diagnoses Pain in left hip (02/16/24) Stiffness of left hip, not elsewhere classified (02/16/24) Other lack of coordination (02/16/24) Weakness (02/16/24) Physical Therapy Treatment Note PT-OP-A Visit Information Start: 02/06/24 11:18 Freq: Status: Active Protocol: Document 02/16/24 11:19 NBM (Rec: 02/16/24 12:15 NBM [id number]) Out-Patient Physical Therapy Visit Information Visit Information Visit Type Treatment Note Visit Start Time 11:19 Visit Stop Time 12:00 Visit Number 3 Number of RESEARCH PHYSICIST Visits 1 Evaluation Information Evaluation Date 02/06/24 Precautions Precautions - 3rd trimester: limit time in supine and monitor vitals in position *no modalities* PT-OP-B Current Condition Start: 02/06/24 11:18 Freq: Status: Active Protocol: Document 02/06/24 11:18 NM (Rec: 02/06/24 12:23 NM [id number]) Current Condition History of Current Condition Onset Date 3 years ago Current Complaints pain, mobility, walking, transfers History of Current Condition Pt presents with L hip pain. She happened 3 years ago at running in a [employer] meet. She has never had PT. However, pt was had difficulty with walking, had to keep it straight. States that it hurt to flex hip. She was given PT for exercises (hip flexors, stretches); worse with hip flexion. Eased with hip abduction. Continued to do sports after a few week rest. She reports worse with . States that feels deep in her groin. She also fell on 01/17, was running down hill to help her sister. Fell primarily on her L leg, states hip has been hurting worse. Pt is due in March (late); currently 30 weeks. States is going well. Pt reports difficulty with in/out (harder to get out) tub, walking long distances, running (no longer running), hiking (uphill), car transfers (low better, worse with truck ), can stand 1-2 hours before leg flare up. She reports her L hip catches and locks, feels it pop; usually feels it after walking or standing or long strenuous activities. Pt reports that was her first season of [facility] Prior Treatments and Tests States has had x rays- no fractures, no tears in muscle Treatment Goals Patient/Caregiver Goals figure out what's wrong and how to manage it better PT-OP-C Subjective Start: 02/06/24 11:18 Freq: Status: Active Protocol: Document 02/16/24 11:19 NBM (Rec: 02/16/24 12:15 NBM [id number]) OP-PT Subjective Patient Comments Patient Comments Tavon reports she's doing home exercises without issue. She has L hip pain 10/24. returns 03/12. She's been sleeping a little better. She got a R calf cramp [place] but knew how to stretch it out. Pt notices she can walk a lot longer without getting that pain and it doesn't hurt as much when she' s walking. Patient Reported Progress Improving PT-OP-E Functional Tests Start: 02/06/24 11:18 Freq: Status: Active Protocol: Document 02/06/24 11:18 NM (Rec: 02/06/24 12:23 NM [id number]) Functional Tests Five Times Sit to Stand Test Score 17 seconds Comments deep in groin, sore PT-OP-F Manual Assessment Start: 02/06/24 11:18 Freq: Status: Active Protocol: Document 02/06/24 11:18 NM (Rec: 02/06/24 17:11 NM [id number]) Manual Assessments Soft Tissue Assessment Soft Tissue Mobility Assessment Tenderness over L hip flexors, tightness in piriformis Joint Mobility Assessment Joint Mobility Assessment Mild clicking with labral testing on LLE PT-OP-G Mobility & Gait Start: 02/06/24 11:18 Freq: Status: Active Protocol: Document 02/06/24 11:18 NM (Rec: 02/06/24 17:11 NM [id number]) OP Gait Assessment Gait Distance (Feet) 150 Gait Deviations General Gait Pattern Antalgic,Wide Based Gait Factors Limiting Gait Function Factors Limiting Gait Function Pain Comments Gait Comments Wide based gait with B hip ER and slight L pronation. Antalgic PT-OP-J Posture/Palpation/Skin Start: 02/06/24 11:18 Freq: Status: Active Protocol: Document 02/06/24 11:18 NM (Rec: 02/06/24 17:11 NM [id number]) Posture Evaluation Position Standing L-Spine Posture Increased Lordosis Shoulder Posture (L) Rounded,(R) Rounded Arm Posture (L) Neutral,(R) Neutral Pelvis Posture Anteriorly Tilted Weight Distribution Weight Shifted Right Hip Posture (L) Externally Rotated,(R) Externally Rotated Knee Posture (L) Genu Valgus,(R) Genu Valgus Ankle/Foot Posture (L) Pronated Palpation Assessment Location L hip Palpation Details Tenderness over anterior hip flexors, especially pectineus and proximal rectus femoris No tenderness but tightness of lumbar paraspinals and L glutes/piriformis PT-OP-K Range of Motion Start: 02/06/24 11:18 Freq: Status: Active Protocol: Document 02/06/24 11:18 NM (Rec: 02/06/24 12:23 NM [id number]) Lumbar Spine Range of Motion Lumbar Spine Active Percentage Flexion 90 Extension 100 Rotation Left 100 Rotation Right 100 Lateral Flexion Left 100 Lateral Flexion Right 100 Comments pain with R LF, flexion, R rotation Hip Goniometric Range of Motion Hip Right Flexion w/Knee Flexed 110 Extension 10 Abduction 25 Internal Rotation 30 External Rotation 30 Left Flexion w/Knee Flexed 99 Extension 5 Abduction 21 Internal Rotation 35 External Rotation 30 Comments pain with IR, flex, abd PT-OP-L Special Tests Start: 02/06/24 11:18 Freq: Status: Active Protocol: Document 02/06/24 11:18 NM (Rec: 02/06/24 12:23 NM [id number]) Special Tests Hip Special Tests Log Roll Test Test Results + Scour Test Test Results + Posterior Labral Test Test Results + Anterior Labral Test Test Results + PT-OP-M Strength Start: 02/06/24 11:18 Freq: Status: Active Protocol: Document 02/06/24 11:18 NM (Rec: 02/06/24 12:23 NM [id number]) Hip Strength Hip Manual Muscle Testing Right Flexion (L2) 4+ Good+ Extension (S1) 4+ Good+ Abduction 4+ Good+ Adduction 4+ Good+ External Rotation 4+ Good+ Internal Rotation 4+ Good+ Left Flexion (L2) 4- Good- Extension (S1) 4- Good- Abduction 4- Good- Adduction 4- Good- External Rotation 4- Good- Internal Rotation 4- Good- Comments pain with flexion and IR, abd; mild pain with ER, HS, ext Knee Strength Knee Manual Muscle Testing Left Flexion (S2) 4 Good Extension (L3) 4 Good Right Flexion (S2) 4 Good Extension (L3) 4 Good PT-OP-Q Treatments Start: 02/06/24 11:18 Freq: Status: Active Protocol: Document 02/16/24 11:19 [facility] (Rec: 02/16/24 12:15 [facility] [id number]) Therapeutic Exercises Sitting Exercises HS curl Sitting Exercise Name hamstring curl Side bilateral Resistance Lvl 2 Tb Reps/Minutes x10 ea clam Side left Resistance level 2 band Reps/Minutes x10 Comments no hip pain, cues for TrA and breathwork hip abduction Sitting Exercise Name 1. isometric w/ hand, 2. isometric with band Side bilateral Reps/Minutes 1. 1x5, 5x 2breath cycles 2. 2x10 breathcycle ea Comments no hip pain georgian ball Sitting Exercise Name 1. hip flexor stretch, 2. pelvic tilts 3. CW/CCW 4. alt september 5. Paloff Side bilateral Equipment Used 65cm green, Lvl 1>2>3 Tb Reps/Minutes 1. 2x30 ea, 2. x10, 3. 1' 4. x10 ea 5.x10 ea Lvl 3 green Comments pain free, breath and TrA focus. Standing Exercises wall squat Standing Exercise Name mini squat Side bilateral Resistance level 2 band Equipment Used 65 cm ball Reps/Minutes 2x8 Comments small rom; reports no increase in hip pain, cues for gluteal activation PT-OP-T Assessment and Plan Start: 02/06/24 11:18 Freq: Status: Active Protocol: Document 02/16/24 11:19 [facility] (Rec: 02/16/24 12:15 [facility] [id number]) Physical Therapy Assessment Goals Four Impairment standing Patient Resource Specialist Goal (LTG) Pt will report that she is able to stand at least 2 hours without increase in baseline pain in order to be able to take care of her infant after LTG Duration 10 weeks Three Impairment transfers Patient Resource Specialist Goal (LTG) Pt will report that she is able to transfer in/out of tub without increase in baseline pain during at least 75% of attempts in order to demonstrate improved QOL and symptom management LTG Duration 10 weeks Two Impairment hip strength: 4-/5 MMT globally Short Term Goal (STG) Pt will improve L hip strength to at least 4/5 MMT in order to demonstrate improved hip strength for gait, balance, activity tolerance, and ADLs STG Duration 6 weeks Prison Goal (LTG) Pt will improve L hip strength to at least 4+/5 MMT in order to demonstrate improved hip strength for gait, balance, activity tolerance, and ADLs LTG Duration 10 weeks One Impairment LEFS- 38/80 Prison Goal (LTG) Pt will improve LEFS score by at least 9 points (1 MCID) in order to demonstrate improve activity tolerance and symptom management LTG Duration 10 weeks Assessment Summary Assessment Tavon presents 31.5 weeks with 4/10 L hip pain which improves to 2/10 end of session. Treatment focus on hip mobility and core progression. Pt requires cues for not breathholding with ex' s. Edu to pt w/ visual aids for Transverse abdominis m. anatomy and physiology and interrelationship of diaphragm and pelvic floor muscles in maintaining intrabdominal pressure with breath, emphasizing importance of not breathholding and to engage TrA. Physical Therapy Plan Frequency and Duration Frequency of Treatment 2x/Week Duration of treatment (weeks) 10 Plan of Care Start Date 02/06/24 Plan of Care End Date 04/19/24 Therapeutic Interventions Therapeutic Interventions Balance Training,Gait Training ,Home Exercise Program,Manual Therapy,Neuromuscular Re- education,Patient/Caregiver Education,Self-Care/Home Management,Sensory Integration ,Soft Tissue Mobilization, Therapeutic Activities, Therapeutic Exercises Modalities Cold Pack/Ice Massage Other Therapeutic Interventions taping allergy no mobilizations due to Gentle MET only Next Visit Focus/Plan Next Note Type Treatment Note Next Visit Plan pillow isometric clam in seated or short term supine, hip ext in standing, HSC seated or prone, LAQ, trial s/l quad/hip ext stretch, bridge hold w/ band. AROM- stool rot, hip circles prone: IR/ER AROM georgian ball: ppt, pelvic mobility, core (limit hip flex )
--- NOTE | 2024-02-23 13:53 | PT.OTN ---
Current Diagnoses Pain in left hip (02/23/24) Stiffness of left hip, not elsewhere classified (02/23/24) Other lack of coordination (02/23/24) Weakness (02/23/24) Physical Therapy Treatment Note PT-OP-A Visit Information Start: 02/06/24 11:18 Freq: Status: Active Protocol: Document 02/23/24 13:05 NBM (Rec: 02/23/24 13:53 NBM [id number]) Out-Patient Physical Therapy Visit Information Visit Information Visit Type Treatment Note Visit Note Vitals SOS: 115/74, 98% SO2, 90 bpm Visit Start Time 13:08 Visit Stop Time 13:51 Visit Number 4 Number of [employer]KH[employer]GE [employer]AT Visits 2 Evaluation Information Evaluation Date 02/06/24 Precautions Precautions - 3rd trimester: limit time in supine and monitor vitals in position *no modalities* PT-OP-B Current Condition Start: 02/06/24 11:18 Freq: Status: Active Protocol: Document 02/06/24 11:18 NM (Rec: 02/06/24 12:23 NM [id number]) Current Condition History of Current Condition Onset Date 3 years ago Current Complaints pain, mobility, walking, transfers History of Current Condition Pt presents with L hip pain. She happened 3 years ago at running in a [employer] meet. She has never had PT. However, pt was had difficulty with walking, had to keep it straight. States that it hurt to flex hip. She was given PT for exercises (hip flexors, stretches); worse with hip flexion. Eased with hip abduction. Continued to do sports after a few week rest. She reports worse with . States that feels deep in her groin. She also fell on 01/17, was running down hill to help her sister. Fell primarily on her L leg, states hip has been hurting worse. Pt is due in March (late); currently 30 weeks. States is going well. Pt reports difficulty with in/out (harder to get out) tub, walking long distances, running (no longer running), hiking (uphill), car transfers (low better, worse with truck ), can stand 1-2 hours before leg flare up. She reports her L hip catches and locks, feels it pop; usually feels it after walking or standing or long strenuous activities. Pt reports that was her first season of [facility] Prior Treatments and Tests States has had x rays- no fractures, no tears in muscle Treatment Goals Patient/Caregiver Goals figure out what's wrong and how to manage it better PT-OP-C Subjective Start: 02/06/24 11:18 Freq: Status: Active Protocol: Document 02/23/24 13:05 NBM (Rec: 02/23/24 13:53 NBM [id number]) OP-PT Subjective Patient Comments Patient Comments Tavon reports ex's help and her L hip pain is currently 2- 310. Baby hasn't been letting her sleep lately and this past week was bad for nausea, yesterday was okay and she had 32nd week appointment and was told to keep taking her nausea medication as prescribed. Today she woke up with more nausea and threw up her waffles and has been unable to keep food down all day. She eats better at night. She has a headache, probably from being dehydrated. No lightheadedness or dizziness currrently. PT-OP-E Functional Tests Start: 02/06/24 11:18 Freq: Status: Active Protocol: Document 02/06/24 11:18 NM (Rec: 02/06/24 12:23 NM [id number]) Functional Tests Five Times Sit to Stand Test Score 17 seconds Comments deep in groin, sore PT-OP-F Manual Assessment Start: 02/06/24 11:18 Freq: Status: Active Protocol: Document 02/06/24 11:18 NM (Rec: 02/06/24 17:11 NM [id number]) Manual Assessments Soft Tissue Assessment Soft Tissue Mobility Assessment Tenderness over L hip flexors, tightness in piriformis Joint Mobility Assessment Joint Mobility Assessment Mild clicking with labral testing on LLE PT-OP-G Mobility & Gait Start: 02/06/24 11:18 Freq: Status: Active Protocol: Document 02/06/24 11:18 NM (Rec: 02/06/24 17:11 NM [id number]) OP Gait Assessment Gait Distance (Feet) 150 Gait Deviations General Gait Pattern Antalgic,Wide Based Gait Factors Limiting Gait Function Factors Limiting Gait Function Pain Comments Gait Comments Wide based gait with B hip ER and slight L pronation. Antalgic PT-OP-J Posture/Palpation/Skin Start: 02/06/24 11:18 Freq: Status: Active Protocol: Document 02/06/24 11:18 NM (Rec: 02/06/24 17:11 NM [id number]) Posture Evaluation Position Standing L-Spine Posture Increased Lordosis Shoulder Posture (L) Rounded,(R) Rounded Arm Posture (L) Neutral,(R) Neutral Pelvis Posture Anteriorly Tilted Weight Distribution Weight Shifted Right Hip Posture (L) Externally Rotated,(R) Externally Rotated Knee Posture (L) Genu Valgus,(R) Genu Valgus Ankle/Foot Posture (L) Pronated Palpation Assessment Location L hip Palpation Details Tenderness over anterior hip flexors, especially pectineus and proximal rectus femoris No tenderness but tightness of lumbar paraspinals and L glutes/piriformis PT-OP-K Range of Motion Start: 02/06/24 11:18 Freq: Status: Active Protocol: Document 02/06/24 11:18 NM (Rec: 02/06/24 12:23 NM [id number]) Lumbar Spine Range of Motion Lumbar Spine Active Percentage Flexion 90 Extension 100 Rotation Left 100 Rotation Right 100 Lateral Flexion Left 100 Lateral Flexion Right 100 Comments pain with R LF, flexion, R rotation Hip Goniometric Range of Motion Hip Right Flexion w/Knee Flexed 110 Extension 10 Abduction 25 Internal Rotation 30 External Rotation 30 Left Flexion w/Knee Flexed 99 Extension 5 Abduction 21 Internal Rotation 35 External Rotation 30 Comments pain with IR, flex, abd PT-OP-L Special Tests Start: 02/06/24 11:18 Freq: Status: Active Protocol: Document 02/06/24 11:18 NM (Rec: 02/06/24 12:23 NM [id number]) Special Tests Hip Special Tests Log Roll Test Test Results + Scour Test Test Results + Posterior Labral Test Test Results + Anterior Labral Test Test Results + PT-OP-M Strength Start: 02/06/24 11:18 Freq: Status: Active Protocol: Document 02/06/24 11:18 NM (Rec: 02/06/24 12:23 NM [id number]) Hip Strength Hip Manual Muscle Testing Right Flexion (L2) 4+ Good+ Extension (S1) 4+ Good+ Abduction 4+ Good+ Adduction 4+ Good+ External Rotation 4+ Good+ Internal Rotation 4+ Good+ Left Flexion (L2) 4- Good- Extension (S1) 4- Good- Abduction 4- Good- Adduction 4- Good- External Rotation 4- Good- Internal Rotation 4- Good- Comments pain with flexion and IR, abd; mild pain with ER, HS, ext Knee Strength Knee Manual Muscle Testing Left Flexion (S2) 4 Good Extension (L3) 4 Good Right Flexion (S2) 4 Good Extension (L3) 4 Good PT-OP-Q Treatments Start: 02/06/24 11:18 Freq: Status: Active Protocol: Document 02/23/24 13:05 [facility] (Rec: 02/23/24 13:53 [facility] [id number]) Therapeutic Exercises Supine Exercises bridge hold Supine Exercise Name trialed in PT Side bilateral Resistance Lvl 2 Tb Reps/Minutes 5 x 3 breath cycle hold Comments initial cues for LE alignment Sidelying Exercises quad stretch Sidelying Exercise Name added to HEP Side bilateral Equipment Used w/ strap, pillow support for LE alignment Reps/Minutes 2x30s ea Comments cues for LE alignment Sitting Exercises HS curl Sitting Exercise Name hamstring curl Side bilateral Resistance Lvl 2 Tb Reps/Minutes x10 ea clam Sitting Exercise Name 1. bilateral 2. L only Side left Resistance level 2 band Reps/Minutes x10 ea Comments no hip pain, w/ TrA and breathwork hip abduction Sitting Exercise Name 1. isometric w/ hand, 2. isometric with band Side bilateral Reps/Minutes 1. 1x5, 5x 2breath cycles 2. 2x10 breathcycle ea Comments no hip pain PT-OP-T Assessment and Plan Start: 02/06/24 11:18 Freq: Status: Active Protocol: Document 02/23/24 13:05 [facility] (Rec: 02/23/24 13:53 [facility] [id number]) Physical Therapy Assessment Goals Four Impairment standing Software Tools Developer Goal (LTG) Pt will report that she is able to stand at least 2 hours without increase in baseline pain in order to be able to take care of her after LTG Duration 10 weeks Three Impairment transfers Software Tools Developer Goal (LTG) Pt will report that she is able to transfer in/out of tub without increase in baseline pain during at least 75% of attempts in order to demonstrate improved QOL and symptom management LTG Duration 10 weeks Two Impairment hip strength: 4-/5 MMT globally Short Term Goal (STG) Pt will improve L hip strength to at least 4/5 MMT in order to demonstrate improved hip strength for gait, balance, activity tolerance, and ADLs STG Duration 6 weeks Usp Goal (LTG) Pt will improve L hip strength to at least 4+/5 MMT in order to demonstrate improved hip strength for gait, balance, activity tolerance, and ADLs LTG Duration 10 weeks One Impairment LEFS- 38/80 Software Tools Developer Goal (LTG) Pt will improve LEFS score by at least 9 points (1 MCID) in order to demonstrate improve activity tolerance and symptom management LTG Duration 10 weeks Assessment Summary Assessment Tavon presents with headache possibly from - related vomiting today. SOS vitals: BP 115/74, SO2 98%, HR 90bpm. She tolerates sidelying quad stretch w/ strap into hip extension with postitive feedback response - added to HEP, no HO given. SHe is able to perform bridge hold w/ breath focus without increased pain or discomfort from baseline symptoms. Pain improves from 2-3/10 end of session to 1-2/10 start of session. Pt reports headache improved to light headache end of session. Pt sipped water throughout session as needed. Physical Therapy Plan Frequency and Duration Frequency of Treatment 2x/Week Duration of treatment (weeks) 10 Plan of Care Start Date 02/06/24 Plan of Care End Date 04/19/24 Therapeutic Interventions Therapeutic Interventions Balance Training,Gait Training ,Home Exercise Program,Manual Therapy,Neuromuscular Re- education,Patient/Caregiver Education,Self-Care/Home Management,Sensory Integration ,Soft Tissue Mobilization, Therapeutic Activities, Therapeutic Exercises Modalities Cold Pack/Ice Massage Other Therapeutic Interventions taping allergy no mobilizations due to Gentle MET only Next Visit Focus/Plan Next Note Type Treatment Note Next Visit Plan pillow isometric clam in seated or short term supine, hip ext in standing, HSC seated or prone, LAQ, review s/l quad/hip ext stretch, bridge hold w/ band. AROM- stool rot, hip circles prone: IR/ER AROM marshallese ball: ppt, pelvic mobility, core (limit hip flex )
--- NOTE | 2024-02-27 14:39 | PT.OTN ---
Current Diagnoses Pain in left hip (02/27/24) Stiffness of left hip, not elsewhere classified (02/27/24) Other lack of coordination (02/27/24) Weakness (02/27/24) Physical Therapy Treatment Note PT-OP-A Visit Information Start: 02/06/24 11:18 Freq: Status: Active Protocol: Document 02/27/24 13:38 NBM (Rec: 02/27/24 14:39 NBM [id number]) Out-Patient Physical Therapy Visit Information Visit Information Visit Type Treatment Note Visit Note water prn throughout treatment . 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 She happened 3 years ago at running in a [employer] meet. She has never had PT. However, pt was had difficulty with walking, had to keep it straight. States that it hurt to flex hip. She was given PT for exercises (hip flexors, stretches); worse with hip flexion. Eased with hip abduction. Continued to do sports after a few week rest. She reports worse with . States that feels deep in her groin. She also fell on 01/17, was running down hill to help her sister. Fell primarily on her L leg, states hip has been hurting worse. Pt is due in March (late); currently 30 weeks. States is going well. Pt reports difficulty with in/out (harder to get out) tub, walking long distances, running (no longer running), hiking (uphill), car transfers (low better, worse with truck ), can stand 1-2 hours before leg flare up. She reports her L hip catches and locks, feels it pop; usually feels it after walking or standing or long strenuous activities. Pt reports that was her first season of [facility] Prior Treatments and Tests States has had x rays- no fractures, no tears in muscle Treatment Goals Patient/Caregiver Goals figure out what's wrong and how to manage it better PT-OP-C Subjective Start: 02/06/24 11:18 Freq: Status: Active Protocol: Document 02/27/24 13:38 NBM (Rec: 02/27/24 14:39 NBM [id number]) OP-PT Subjective Patient Comments Patient Comments Tavon reports Her L hip pain is 1-2/10. She's feeling much better today than last visit when she was nauseous. Her sister is staying with her and helping with chores and lifting heavy items. Her iron levels are being monitored for fatigue and she had a miscarriage 4 weeks prior to this and had been anemic so has been taken iron supplements previously. She's tossing a lot in her sleep because she can only lay on her side for so long. returns in two weeks. Standing up and standing for longer periods is easier. She thinks she has hypermobility in her ankles and keeps rolling them. Patient Reported Progress Improving PT-OP-E Functional Tests Start: 02/06/24 11:18 Freq: Status: Active Protocol: Document 02/06/24 11:18 NM (Rec: 02/06/24 12:23 NM [id number]) Functional Tests Five Times Sit to Stand Test Score 17 seconds Comments deep in groin, sore PT-OP-F Manual Assessment Start: 02/06/24 11:18 Freq: Status: Active Protocol: Document 02/06/24 11:18 NM (Rec: 02/06/24 17:11 NM [id number]) Manual Assessments Soft Tissue Assessment Soft Tissue Mobility Assessment Tenderness over L hip flexors, tightness in piriformis Joint Mobility Assessment Joint Mobility Assessment Mild clicking with labral testing on LLE PT-OP-G Mobility & Gait Start: 02/06/24 11:18 Freq: Status: Active Protocol: Document 02/06/24 11:18 NM (Rec: 02/06/24 17:11 NM [id number]) OP Gait Assessment Gait Distance (Feet) 150 Gait Deviations General Gait Pattern Antalgic,Wide Based Gait Factors Limiting Gait Function Factors Limiting Gait Function Pain Comments Gait Comments Wide based gait with B hip ER and slight L pronation. Antalgic PT-OP-J Posture/Palpation/Skin Start: 02/06/24 11:18 Freq: Status: Active Protocol: Document 02/06/24 11:18 NM (Rec: 02/06/24 17:11 NM [id number]) Posture Evaluation Position Standing L-Spine Posture Increased Lordosis Shoulder Posture (L) Rounded,(R) Rounded Arm Posture (L) Neutral,(R) Neutral Pelvis Posture Anteriorly Tilted Weight Distribution Weight Shifted Right Hip Posture (L) Externally Rotated,(R) Externally Rotated Knee Posture (L) Genu Valgus,(R) Genu Valgus Ankle/Foot Posture (L) Pronated Palpation Assessment Location L hip Palpation Details Tenderness over anterior hip flexors, especially pectineus and proximal rectus femoris No tenderness but tightness of lumbar paraspinals and L glutes/piriformis PT-OP-K Range of Motion Start: 02/06/24 11:18 Freq: Status: Active Protocol: Document 02/06/24 11:18 NM (Rec: 02/06/24 12:23 NM [id number]) Lumbar Spine Range of Motion Lumbar Spine Active Percentage Flexion 90 Extension 100 Rotation Left 100 Rotation Right 100 Lateral Flexion Left 100 Lateral Flexion Right 100 Comments pain with R LF, flexion, R rotation Hip Goniometric Range of Motion Hip Right Flexion w/Knee Flexed 110 Extension 10 Abduction 25 Internal Rotation 30 External Rotation 30 Left Flexion w/Knee Flexed 99 Extension 5 Abduction 21 Internal Rotation 35 External Rotation 30 Comments pain with IR, flex, abd PT-OP-L Special Tests Start: 02/06/24 11:18 Freq: Status: Active Protocol: Document 02/06/24 11:18 NM (Rec: 02/06/24 12:23 NM [id number]) Special Tests Hip Special Tests Log Roll Test Test Results + Scour Test Test Results + Posterior Labral Test Test Results + Anterior Labral Test Test Results + PT-OP-M Strength Start: 02/06/24 11:18 Freq: Status: Active Protocol: Document 02/06/24 11:18 NM (Rec: 02/06/24 12:23 NM [id number]) Hip Strength Hip Manual Muscle Testing Right Flexion (L2) 4+ Good+ Extension (S1) 4+ Good+ Abduction 4+ Good+ Adduction 4+ Good+ External Rotation 4+ Good+ Internal Rotation 4+ Good+ Left Flexion (L2) 4- Good- Extension (S1) 4- Good- Abduction 4- Good- Adduction 4- Good- External Rotation 4- Good- Internal Rotation 4- Good- Comments pain with flexion and IR, abd; mild pain with ER, HS, ext Knee Strength Knee Manual Muscle Testing Left Flexion (S2) 4 Good Extension (L3) 4 Good Right Flexion (S2) 4 Good Extension (L3) 4 Good PT-OP-Q Treatments Start: 02/06/24 11:18 Freq: Status: Active Protocol: Document 02/27/24 13:38 [facility] (Rec: 02/27/24 14:39 [facility] [id number]) Therapeutic Exercises Sitting Exercises HS curl Sitting Exercise Name hamstring curl Side bilateral Resistance Lvl 3 Tb Reps/Minutes x10 ea Comments no hip pain clam Sitting Exercise Name L only w/ TrA and breathwork Side left Resistance level 3 band Reps/Minutes x10 ea Comments no hip pain, hip abduction Sitting Exercise Name isometric with band Side bilateral Resistance Lvl 2>3 Tb Reps/Minutes 1x10 breathcycle ea band Comments no hip pain grenadian ball Sitting Exercise Name 1.Stretch: hip flx, low back 2 .pelvic tilts 3.CW/CCW 4.alt september 5.Paloff Side bilateral Equipment Used 65cm green, Lvl 3 Tb for Paloff Reps/Minutes 1. 2x30 ea, 2. x10, 3. 1' 4. x10 ea 5.x10 ea Lvl 3 green Comments pain free, breath/TrA focus. 1 cue for lumbar hyperextension w/ Paloff Standing Exercises hip extension Standing Exercise Name trialed in PT Side bilateral Resistance Level 2 Tb Reps/Minutes x5 ea, Lvl 2 Tb x10 ea Comments no hip pain wall squat Standing Exercise Name mini squat Side bilateral Resistance level 3 band Equipment Used 65 cm ball Reps/Minutes 2x8 Comments cues for breathwork PT-OP-T Assessment and Plan Start: 02/06/24 11:18 Freq: Status: Active Protocol: Document 02/27/24 13:38 [facility] (Rec: 02/27/24 14:39 [facility] [id number]) Physical Therapy Assessment Goals Four Impairment standing Scientist Engineer Goal (LTG) Pt will report that she is able to stand at least 2 hours without increase in baseline pain in order to be able to take care of her after 02/26: GOAL MET: Pt reports pain starts after standing 2.5 hours. LTG Duration 10 weeks (02/27/24: GOAL MET) Three Impairment transfers Alf Goal (LTG) Pt will report that she is able to transfer in/out of tub without increase in baseline pain during at least 75% of attempts in order to demonstrate improved QOL and symptom management 02/27/24: Progressing: easier to step into shower with both legs now instead of only R. LTG Duration 10 weeks (progressin02/27/24 ) Two Impairment hip strength: 4-/5 MMT globally Short Term Goal (STG) Pt will improve L hip strength to at least 4/5 MMT in order to demonstrate improved hip strength for gait, balance, activity tolerance, and ADLs STG Duration 6 weeks Alf Goal (LTG) Pt will improve L hip strength to at least 4+/5 MMT in order to demonstrate improved hip strength for gait, balance, activity tolerance, and ADLs LTG Duration 10 weeks One Impairment LEFS- 38/80 Alf Goal (LTG) Pt will improve LEFS score by at least 9 points (1 MCID) in order to demonstrate improve activity tolerance and symptom management LTG Duration 10 weeks Assessment Summary Assessment Tavon is 33 weeks as of Monday. She demonstrates progress towards transfer goal of getting in/out of shower without increase of baseline symptoms 75% and is now able to enter tub with L foot as well as R. She meets standing goal of two hours without increase in baseline symptoms and is now able to stand for 2.5 hours before pain starts. She presents today with 1-2/10 L hip pain which improves to 1/10 end of session. She requires one cue for lumbar hyperextension w/ seated Paloff press, and band anchored to R is more challenging. She tolerates resistance band progression from Lvl 2 to Lvl 3 for all ex 's in session. Standing hip extension is trialed and pt demos correctly with Level 2 Tb after cueing for maintaining neutral foot position. Physical Therapy Plan Frequency and Duration Frequency of Treatment 2x/Week Duration of treatment (weeks) 10 Plan of Care Start Date 02/06/24 Plan of Care End Date 04/19/24 Therapeutic Interventions Therapeutic Interventions Balance Training,Gait Training ,Home Exercise Program,Manual Therapy,Neuromuscular Re- education,Patient/Caregiver Education,Self-Care/Home Management,Sensory Integration ,Soft Tissue Mobilization, Therapeutic Activities, Therapeutic Exercises Modalities Cold Pack/Ice Massage Other Therapeutic Interventions taping allergy no mobilizations due to Gentle MET only Next Visit Focus/Plan Next Note Type Treatment Note Next Visit Plan pillow isometric clam in seated or short term supine, hip ext in standing, HSC seated or prone, LAQ, review s/l quad/hip ext stretch, bridge hold w/ band. AROM- stool rot, hip circles prone: IR/ER AROM grenadian ball: ppt, pelvic mobility, core (limit hip flex )
--- NOTE | 2024-02-27 14:39 | PT.OTN ---
Current Diagnoses Pain in left hip (02/27/24) Stiffness of left hip, not elsewhere classified (02/27/24) Other lack of coordination (02/27/24) Weakness (02/27/24) Physical Therapy Treatment Note PT-OP-A Visit Information Start: 02/06/24 11:18 Freq: Status: Active Protocol: Document 02/27/24 13:38 NBM (Rec: 02/27/24 14:39 NBM [id number]) Out-Patient Physical Therapy Visit Information Visit Information Visit Type Treatment Note Visit Note water prn throughout treatment . Visit Start Time 13:45 Visit Stop Time 14:37 Visit Number 5 Number of [employer] WORK[employer] Visits 3 Evaluation Information Evaluation Date 02/06/24 Precautions Precautions - 3rd trimester: limit time in supine and monitor vitals in position *no modalities* PT-OP-B Current Condition Start: 02/06/24 11:18 Freq: Status: Active Protocol: Document 02/06/24 11:18 NM (Rec: 02/06/24 12:23 NM [id number]) Current Condition History of Current Condition Onset Date 3 years ago Current Complaints pain, mobility, walking, transfers History of Current Condition Pt presents with L hip pain. She happened 3 years ago at running in a [employer] meet. She has never had PT. However, pt was had difficulty with walking, had to keep it straight. States that it hurt to flex hip. She was given PT for exercises (hip flexors, stretches); worse with hip flexion. Eased with hip abduction. Continued to do sports after a few week rest. She reports worse with . States that feels deep in her groin. She also fell on 01/17, was running down hill to help her sister. Fell primarily on her L leg, states hip has been hurting worse. Pt is due in March (late); currently 30 weeks. States is going well. Pt reports difficulty with in/out (harder to get out) tub, walking long distances, running (no longer running), hiking (uphill), car transfers (low better, worse with truck ), can stand 1-2 hours before leg flare up. She reports her L hip catches and locks, feels it pop; usually feels it after walking or standing or long strenuous activities. Pt reports that was her first season of [facility] Prior Treatments and Tests States has had x rays- no fractures, no tears in muscle Treatment Goals Patient/Caregiver Goals figure out what's wrong and how to manage it better PT-OP-C Subjective Start: 02/06/24 11:18 Freq: Status: Active Protocol: Document 02/27/24 13:38 NBM (Rec: 02/27/24 14:39 NBM [id number]) OP-PT Subjective Patient Comments Patient Comments Tavon reports Her L hip pain is 1-2/10. She's feeling much better today than last visit when she was nauseous. Her sister is staying with her and helping with chores and lifting heavy items. Her iron levels are being monitored for fatigue and she had a miscarriage 4 weeks prior to this and had been anemic so has been taken iron supplements previously. She's tossing a lot in her sleep because she can only lay on her side for so long. returns in two weeks. Standing up and standing for longer periods is easier. She thinks she has hypermobility in her ankles and keeps rolling them. Patient Reported Progress Improving PT-OP-E Functional Tests Start: 02/06/24 11:18 Freq: Status: Active Protocol: Document 02/06/24 11:18 NM (Rec: 02/06/24 12:23 NM [id number]) Functional Tests Five Times Sit to Stand Test Score 17 seconds Comments deep in groin, sore PT-OP-F Manual Assessment Start: 02/06/24 11:18 Freq: Status: Active Protocol: Document 02/06/24 11:18 NM (Rec: 02/06/24 17:11 NM [id number]) Manual Assessments Soft Tissue Assessment Soft Tissue Mobility Assessment Tenderness over L hip flexors, tightness in piriformis Joint Mobility Assessment Joint Mobility Assessment Mild clicking with labral testing on LLE PT-OP-G Mobility & Gait Start: 02/06/24 11:18 Freq: Status: Active Protocol: Document 02/06/24 11:18 NM (Rec: 02/06/24 17:11 NM [id number]) OP Gait Assessment Gait Distance (Feet) 150 Gait Deviations General Gait Pattern Antalgic,Wide Based Gait Factors Limiting Gait Function Factors Limiting Gait Function Pain Comments Gait Comments Wide based gait with B hip ER and slight L pronation. Antalgic PT-OP-J Posture/Palpation/Skin Start: 02/06/24 11:18 Freq: Status: Active Protocol: Document 02/06/24 11:18 NM (Rec: 02/06/24 17:11 NM [id number]) Posture Evaluation Position Standing L-Spine Posture Increased Lordosis Shoulder Posture (L) Rounded,(R) Rounded Arm Posture (L) Neutral,(R) Neutral Pelvis Posture Anteriorly Tilted Weight Distribution Weight Shifted Right Hip Posture (L) Externally Rotated,(R) Externally Rotated Knee Posture (L) Genu Valgus,(R) Genu Valgus Ankle/Foot Posture (L) Pronated Palpation Assessment Location L hip Palpation Details Tenderness over anterior hip flexors, especially pectineus and proximal rectus femoris No tenderness but tightness of lumbar paraspinals and L glutes/piriformis PT-OP-K Range of Motion Start: 02/06/24 11:18 Freq: Status: Active Protocol: Document 02/06/24 11:18 NM (Rec: 02/06/24 12:23 NM [id number]) Lumbar Spine Range of Motion Lumbar Spine Active Percentage Flexion 90 Extension 100 Rotation Left 100 Rotation Right 100 Lateral Flexion Left 100 Lateral Flexion Right 100 Comments pain with R LF, flexion, R rotation Hip Goniometric Range of Motion Hip Right Flexion w/Knee Flexed 110 Extension 10 Abduction 25 Internal Rotation 30 External Rotation 30 Left Flexion w/Knee Flexed 99 Extension 5 Abduction 21 Internal Rotation 35 External Rotation 30 Comments pain with IR, flex, abd PT-OP-L Special Tests Start: 02/06/24 11:18 Freq: Status: Active Protocol: Document 02/06/24 11:18 NM (Rec: 02/06/24 12:23 NM [id number]) Special Tests Hip Special Tests Log Roll Test Test Results + Scour Test Test Results + Posterior Labral Test Test Results + Anterior Labral Test Test Results + PT-OP-M Strength Start: 02/06/24 11:18 Freq: Status: Active Protocol: Document 02/06/24 11:18 NM (Rec: 02/06/24 12:23 NM [id number]) Hip Strength Hip Manual Muscle Testing Right Flexion (L2) 4+ Good+ Extension (S1) 4+ Good+ Abduction 4+ Good+ Adduction 4+ Good+ External Rotation 4+ Good+ Internal Rotation 4+ Good+ Left Flexion (L2) 4- Good- Extension (S1) 4- Good- Abduction 4- Good- Adduction 4- Good- External Rotation 4- Good- Internal Rotation 4- Good- Comments pain with flexion and IR, abd; mild pain with ER, HS, ext Knee Strength Knee Manual Muscle Testing Left Flexion (S2) 4 Good Extension (L3) 4 Good Right Flexion (S2) 4 Good Extension (L3) 4 Good PT-OP-Q Treatments Start: 02/06/24 11:18 Freq: Status: Active Protocol: Document 02/27/24 13:38 [facility] (Rec: 02/27/24 14:39 [facility] [id number]) Therapeutic Exercises Sitting Exercises HS curl Sitting Exercise Name hamstring curl Side bilateral Resistance Lvl 3 Tb Reps/Minutes x10 ea Comments no hip pain clam Sitting Exercise Name L only w/ TrA and breathwork Side left Resistance level 3 band Reps/Minutes x10 ea Comments no hip pain, hip abduction Sitting Exercise Name isometric with band Side bilateral Resistance Lvl 2>3 Tb Reps/Minutes 1x10 breathcycle ea band Comments no hip pain nicaraguan ball Sitting Exercise Name 1.Stretch: hip flx, low back 2 .pelvic tilts 3.CW/CCW 4.alt september 5.Paloff Side bilateral Equipment Used 65cm green, Lvl 3 Tb for Paloff Reps/Minutes 1. 2x30 ea, 2. x10, 3. 1' 4. x10 ea 5.x10 ea Lvl 3 green Comments pain free, breath/TrA focus. 1 cue for lumbar hyperextension w/ Paloff Standing Exercises hip extension Standing Exercise Name trialed in PT Side bilateral Resistance Level 2 Tb Reps/Minutes x5 ea, Lvl 2 Tb x10 ea Comments no hip pain wall squat Standing Exercise Name mini squat Side bilateral Resistance level 3 band Equipment Used 65 cm ball Reps/Minutes 2x8 Comments cues for breathwork PT-OP-T Assessment and Plan Start: 02/06/24 11:18 Freq: Status: Active Protocol: Document 02/27/24 13:38 [facility] (Rec: 02/27/24 14:39 [facility] [id number]) Physical Therapy Assessment Goals Four Impairment standing Home Connect Lpn Goal (LTG) Pt will report that she is able to stand at least 2 hours without increase in baseline pain in order to be able to take care of her after 02/26: GOAL MET: Pt reports pain starts after standing 2.5 hours. LTG Duration 10 weeks (02/27/24: GOAL MET) Three Impairment transfers Nursing Home Goal (LTG) Pt will report that she is able to transfer in/out of tub without increase in baseline pain during at least 75% of attempts in order to demonstrate improved QOL and symptom management 02/27/24: Progressing: easier to step into shower with both legs now instead of only R. LTG Duration 10 weeks (progressin02/27/24 ) Two Impairment hip strength: 4-/5 MMT globally Short Term Goal (STG) Pt will improve L hip strength to at least 4/5 MMT in order to demonstrate improved hip strength for gait, balance, activity tolerance, and ADLs STG Duration 6 weeks Nursing Home Goal (LTG) Pt will improve L hip strength to at least 4+/5 MMT in order to demonstrate improved hip strength for gait, balance, activity tolerance, and ADLs LTG Duration 10 weeks One Impairment LEFS- 38/80 Nursing Home Goal (LTG) Pt will improve LEFS score by at least 9 points (1 MCID) in order to demonstrate improve activity tolerance and symptom management LTG Duration 10 weeks Assessment Summary Assessment Tavon is 33 weeks as of Monday. She demonstrates progress towards transfer goal of getting in/out of shower without increase of baseline symptoms 75% and is now able to enter tub with L foot as well as R. She meets standing goal of two hours without increase in baseline symptoms and is now able to stand for 2.5 hours before pain starts. She presents today with 1-2/10 L hip pain which improves to XX end of session. She requires one cue for lumbar hyperextension w/ seated Paloff press, and band anchored to R is more challenging. She tolerates resistance band progression from Lvl 2 to Lvl 3 for all ex 's in session. Standing hip extension is trialed and pt demos correctly with Level 2 Tb after cueing for maintaining neutral foot position. Physical Therapy Plan Frequency and Duration Frequency of Treatment 2x/Week Duration of treatment (weeks) 10 Plan of Care Start Date 02/06/24 Plan of Care End Date 04/19/24 Therapeutic Interventions Therapeutic Interventions Balance Training,Gait Training ,Home Exercise Program,Manual Therapy,Neuromuscular Re- education,Patient/Caregiver Education,Self-Care/Home Management,Sensory Integration ,Soft Tissue Mobilization, Therapeutic Activities, Therapeutic Exercises Modalities Cold Pack/Ice Massage Other Therapeutic Interventions taping allergy no mobilizations due to Gentle MET only Next Visit Focus/Plan Next Note Type Treatment Note Next Visit Plan pillow isometric clam in seated or short term supine, hip ext in standing, HSC seated or prone, LAQ, review s/l quad/hip ext stretch, bridge hold w/ band. AROM- stool rot, hip circles prone: IR/ER AROM nicaraguan ball: ppt, pelvic mobility, core (limit hip flex )
--- NOTE | 2024-03-07 10:56 | PT.OTN ---
Current Diagnoses Pain in left hip (03/07/24) Stiffness of left hip, not elsewhere classified (03/07/24) Other lack of coordination (03/07/24) Weakness (03/07/24) Physical Therapy Treatment Note PT-OP-A Visit Information Start: 02/06/24 11:18 Freq: Status: Active Protocol: Document 03/07/24 09:03 NM (Rec: 03/07/24 09:46 NM [id number]) Out-Patient Physical Therapy Visit Information Visit Information Visit Type Progress Note Visit Start Time 09:04 Visit Stop Time 09:44 Visit Number 6 Evaluation Information Evaluation Date 02/06/24 Precautions Precautions - 3rd trimester: limit time in supine and monitor vitals in position *no modalities* PT-OP-B Current Condition Start: 02/06/24 11:18 Freq: Status: Active Protocol: Document 02/06/24 11:18 NM (Rec: 02/06/24 12:23 NM [id number]) Current Condition History of Current Condition Onset Date 3 years ago Current Complaints pain, mobility, walking, transfers History of Current Condition Pt presents with L hip pain. She happened 3 years ago at running in a [employer] meet. She has never had PT. However, pt was had difficulty with walking, had to keep it straight. States that it hurt to flex hip. She was given PT for exercises (hip flexors, stretches); worse with hip flexion. Eased with hip abduction. Continued to do sports after a few week rest. She reports worse with . States that feels deep in her groin. She also fell on 01/17, was running down hill to help her sister. Fell primarily on her L leg, states hip has been hurting worse. Pt is due in March (late); currently 30 weeks. States is going well. Pt reports difficulty with in/out (harder to get out) tub, walking long distances, running (no longer running), hiking (uphill), car transfers (low better, worse with truck ), can stand 1-2 hours before leg flare up. She reports her L hip catches and locks, feels it pop; usually feels it after walking or standing or long strenuous activities. Pt reports that was her first season of [facility] Prior Treatments and Tests States has had x rays- no fractures, no tears in muscle Treatment Goals Patient/Caregiver Goals figure out what's wrong and how to manage it better PT-OP-C Subjective Start: 02/06/24 11:18 Freq: Status: Active Protocol: Document 03/07/24 09:03 NM (Rec: 03/07/24 09:46 NM [id number]) OP-PT Subjective Patient Comments Patient Comments Pt recently started iron supplements, still has nausea. Went to ER for dehydration monday, states got IV hydration. will be returning next week. has been sleeping better. Pt reports hip feels a lot better, 1-2x/ 10 occasionally. Reports pain only when over exerts with walking or standing (3-4 hr either). Pt is currently 34 weeks . States ready to discharge today PT-OP-E Functional Tests Start: 02/06/24 11:18 Freq: Status: Active Protocol: Document 02/06/24 11:18 NM (Rec: 02/06/24 12:23 NM [id number]) Functional Tests Five Times Sit to Stand Test Score 17 seconds Comments deep in groin, sore PT-OP-F Manual Assessment Start: 02/06/24 11:18 Freq: Status: Active Protocol: Document 02/06/24 11:18 NM (Rec: 02/06/24 17:11 NM [id number]) Manual Assessments Soft Tissue Assessment Soft Tissue Mobility Assessment Tenderness over L hip flexors, tightness in piriformis Joint Mobility Assessment Joint Mobility Assessment Mild clicking with labral testing on LLE PT-OP-G Mobility & Gait Start: 02/06/24 11:18 Freq: Status: Active Protocol: Document 02/06/24 11:18 NM (Rec: 02/06/24 17:11 NM [id number]) OP Gait Assessment Gait Distance (Feet) 150 Gait Deviations General Gait Pattern Antalgic,Wide Based Gait Factors Limiting Gait Function Factors Limiting Gait Function Pain Comments Gait Comments Wide based gait with B hip ER and slight L pronation. Antalgic PT-OP-J Posture/Palpation/Skin Start: 02/06/24 11:18 Freq: Status: Active Protocol: Document 02/06/24 11:18 NM (Rec: 02/06/24 17:11 NM [id number]) Posture Evaluation Position Standing L-Spine Posture Increased Lordosis Shoulder Posture (L) Rounded,(R) Rounded Arm Posture (L) Neutral,(R) Neutral Pelvis Posture Anteriorly Tilted Weight Distribution Weight Shifted Right Hip Posture (L) Externally Rotated,(R) Externally Rotated Knee Posture (L) Genu Valgus,(R) Genu Valgus Ankle/Foot Posture (L) Pronated Palpation Assessment Location L hip Palpation Details Tenderness over anterior hip flexors, especially pectineus and proximal rectus femoris No tenderness but tightness of lumbar paraspinals and L glutes/piriformis PT-OP-K Range of Motion Start: 02/06/24 11:18 Freq: Status: Active Protocol: Document 03/07/24 09:03 NM (Rec: 03/07/24 09:46 NM [id number]) Hip Goniometric Range of Motion Hip Left Flexion w/Knee Flexed 99 Extension 5 Abduction 21 Internal Rotation 35 External Rotation 30 Comments pain with IR, flex, abd 03/07/24: pain free for all motions PT-OP-L Special Tests Start: 02/06/24 11:18 Freq: Status: Active Protocol: Document 02/06/24 11:18 NM (Rec: 02/06/24 12:23 NM [id number]) Special Tests Hip Special Tests Log Roll Test Test Results + Scour Test Test Results + Posterior Labral Test Test Results + Anterior Labral Test Test Results + PT-OP-M Strength Start: 02/06/24 11:18 Freq: Status: Active Protocol: Document 03/07/24 09:03 NM (Rec: 03/07/24 09:46 NM [id number]) Hip Strength Hip Manual Muscle Testing Right Flexion (L2) 4+ Good+ Extension (S1) 4+ Good+ Abduction 4+ Good+ Adduction 4+ Good+ External Rotation 4+ Good+ Internal Rotation 4+ Good+ Left Flexion (L2) 4+ Good+ Extension (S1) 4+ Good+ Abduction 4+ Good+ Adduction 4+ Good+ External Rotation 4+ Good+ Internal Rotation 4+ Good+ Comments IE: 4-/5 for all; pain with flexion and IR, abd; mild pain with ER, HS, ext 03/07/24: 4+/5 for all, no pain Knee Strength Knee Manual Muscle Testing Left Flexion (S2) 4 Good Extension (L3) 4 Good Comments 03/07/24: pain free for knee ext Right Flexion (S2) 4 Good Extension (L3) 4 Good PT-OP-Q Treatments Start: 02/06/24 11:18 Freq: Status: Active Protocol: Document 03/07/24 09:03 NM (Rec: 03/07/24 09:46 NM [id number]) Therapeutic Exercises Prone Exercises quadruped Prone Exercise Name 1. TrA w/ breathing, 2. hip CARS, 3. hip ext, 4. hip abd Side bilateral Reps/Minutes 1. 60 w/ breathing, 2. 10 ea leg, 3. 15, 4. 2x10 ea (2nd set lvl 1 band) Comments pain free; cued for neutral spine; good breathwork, requires increased time Sitting Exercises georgian ball Sitting Exercise Name lat pull down Side bilateral Resistance level 3 band Reps/Minutes 20 Comments good breathwork and form Other Exercises bird dog Side bilateral Resistance AROM Reps/Minutes 2x10 ea Comments challenging for pt PT-OP-T Assessment and Plan Start: 02/06/24 11:18 Freq: Status: Active Protocol: Document 03/07/24 09:03 NM (Rec: 03/07/24 09:46 NM [id number]) Physical Therapy Assessment Goals Four Impairment standing Mcc Goal (LTG) Pt will report that she is able to stand at least 2 hours without increase in baseline pain in order to be able to take care of her after 02/26: GOAL MET: Pt reports pain starts after standing 2.5 hours. LTG Duration 10 weeks (02/27/24: GOAL MET) Three Impairment transfers Plant Engineer Goal (LTG) Pt will report that she is able to transfer in/out of tub without increase in baseline pain during at least 75% of attempts in order to demonstrate improved QOL and symptom management 02/27/24: Progressing: easier to step into shower with both legs now instead of only R. 03/07/24: pt reports that she is able to get in/out tub with pain only 10-15% of time only after walking or standing for long periods; otherwise, states no pain LTG Duration 10 weeks MET 03/07 Two Impairment hip strength: 4-/5 MMT globally Short Term Goal (STG) Pt will improve L hip strength to at least 4/5 MMT in order to demonstrate improved hip strength for gait, balance, activity tolerance, and ADLs STG Duration 6 weeks Plant Engineer Goal (LTG) Pt will improve L hip strength to at least 4+/5 MMT in order to demonstrate improved hip strength for gait, balance, activity tolerance, and ADLs 03/07/24: 4+/5 for all LTG Duration 10 weeks MET One Impairment LEFS- 38/80 Plant Engineer Goal (LTG) Pt will improve LEFS score by at least 9 points (1 MCID) in order to demonstrate improve activity tolerance and symptom management 03/07/24: 66/84 LTG Duration 10 weeks MET Progress Towards Goals Progress Towards Goals Goals Met Progress Comments All goals met Assessment Summary Assessment Pt tolerated session well. Emphasis on establishing maintenance program and facilitating increased glute/ hip strength and hip mobility. PT and pt discussed discharge today as pt is approaching full term and has met all goals; PT and pt in agreement about discharge. Exercises added in quadruped positioning with emphasis on neutral spine and breathwork. Pt pain free for all activities, requiring only occasional cues for correct execution and breathwork. Physical Therapy Plan Frequency and Duration Frequency of Treatment 2x/Week Duration of treatment (weeks) 10 Plan of Care Start Date 02/06/24 Plan of Care End Date 04/19/24 Therapeutic Interventions Therapeutic Interventions Balance Training,Gait Training ,Home Exercise Program,Manual Therapy,Neuromuscular Re- education,Patient/Caregiver Education,Self-Care/Home Management,Sensory Integration ,Soft Tissue Mobilization, Therapeutic Activities, Therapeutic Exercises Modalities Cold Pack/Ice Massage Other Therapeutic Interventions taping allergy no mobilizations due to Gentle MET only Discharge Physical Therapy Discharge Reasons Goals Met Discharge Comments All goals met and pt approaching full term Next Visit Focus/Plan Next Visit Plan discharge from PT
== END 2024-03-22 09:56 | disposition home or self-care (01) ==
LOC: PHYS 09:00
PROVIDERS: Family Provider Specialist; PCP Family Medicine; Referring Provider Family Medicine; Visit Provider Family Medicine
DX: M25.552 Pain in left hip (principal); M25.652 Stiffness of left hip, not elsewhere classified; R53.1 Weakness; R27.8 Other lack of coordination
CPT/HCPCS: 97110; 97140; 97162; 97535

== ENCOUNTER → 2024-03-21 12:23 | Outpatient (CLI) | payer OTHER, SELFPAY ==
[2024-03-22 12:49] LABS: Strep Grp B PCR NEG for Grp B Strep
== END ==
PROVIDERS: Family Provider Specialist; PCP Family Medicine; Visit Provider Family Medicine
DX: Z34.80 Encounter for supervision of other normal pregnancy, unspecified trimester (principal)
CPT/HCPCS: 87653

== ENCOUNTER 2024-03-26 03:52 | Observation (INO) | payer OTHER, SELFPAY | END 2024-03-26 04:35 | disposition home or self-care (01) | PROVIDERS: Admitting Provider Student in an Organized Health Care Education/Training Program; Family Provider Specialist; PCP Family Medicine; Referring Provider Student in an Organized Health Care Education/Training Program; Visit Provider Student in an Organized Health Care Education/Training Program | DX: O47.1 False labor at or after 37 completed weeks of gestation (principal); Z3A.37 37 weeks gestation of pregnancy | CPT/HCPCS: 59025; G0378; G0379 ==

== ENCOUNTER 2024-03-26 20:04 | Outpatient (CLI) | payer OTHER, SELFPAY | END 2024-03-26 20:37 | disposition home or self-care (01) | LOC: OB 03-29 15:33 | PROVIDERS: Family Provider Specialist; PCP Family Medicine; Referring Provider Student in an Organized Health Care Education/Training Program; Visit Provider Student in an Organized Health Care Education/Training Program | DX: O47.1 False labor at or after 37 completed weeks of gestation (principal); Z3A.37 37 weeks gestation of pregnancy | CPT/HCPCS: 59025; G0378; G0379 ==

== ENCOUNTER 2024-03-27 05:12 | Observation (INO) | payer OTHER, SELFPAY ==
[2024-03-27] MEDS: PROMETHAZINE 25 MG TABLET 50 MG PO (06:39)
[2024-03-27] MEDS: MORPHINE 4 MG/ML INJ 2 MG IM (06:39)
== END 2024-03-27 07:25 | disposition home or self-care (01) ==
LOC: LABOR 05:13
PROVIDERS: Admitting Provider Student in an Organized Health Care Education/Training Program; Family Provider Specialist; PCP Family Medicine; Referring Provider Student in an Organized Health Care Education/Training Program; Visit Provider Student in an Organized Health Care Education/Training Program
DX: O47.1 False labor at or after 37 completed weeks of gestation (principal); O99.323 Drug use complicating pregnancy, third trimester; F12.90 Cannabis use, unspecified, uncomplicated; Z3A.37 37 weeks gestation of pregnancy
CPT/HCPCS: 59025; 59050; 96372; G0378; G0379; J2270

== ENCOUNTER 2024-03-28 00:50 | Inpatient (IN) | payer OTHER, SELFPAY ==
[2024-03-28 02:38] LABS: Add Manual Diff / Slide Review NO; Basophils Absolute Auto 0 /uL (0-100); Basophils Percent Auto 0.5 % (0-2); Eosinophils Absolute Auto 0 /uL (0-450); Eosinophils Percent Auto 0.3 % (2-4); Hemoglobin 11.7 g/dL (12.0-16.0); Lymphocytes Absolute Auto 1700 /uL (1100-4500); Mean Corpuscular HGB Conc 33.5 % (30-36); Mean Corpuscular Hemoglobin 27.5 PG (26-34); Mean Corpuscular Volume 82.2 fL (80-100); Monocytes Absolute Auto 500 /uL (0-900); Monocytes Percent Auto 4.9 % (3-14); Neutrophils Absolute Auto 7300 /uL (1500-7000); Neutrophils Percent Auto 76.3 % (50-75); Platelet Count 252 X10^3/uL (150-400); Red Blood Cell Count 4.26 X10^6/uL (4.0-5.2); Red Cell Distribution Width 16.3 % (11.6-14.8); White Blood Cell Count 9.6 X10^3/uL (4.5-11.0)
--- NOTE | 2024-03-28 05:20 | PM.OBHP.1 ---
OB HPI Date/Time Date of admission: 03/28/24 Date Patient Seen: 03/28/24 Time Patient Seen: 05:20 History of Present Condition Chief complaint: LABOR : 2 Para: 0 Estimated Date of Delivery: 04/14/24 Estimated Gestational Age (weeks): 37w3d Narrative: Tavon Gama is a 18 year old female at 37w3d d=9wk US who presents with complaints of SROM at approximately 2300 on 03/27/24, clear fluid. +amnisure on arrival. course reviewed and overall uncomplicated, significant for maternal class 2 obesity (BMI 37), h/o maternal mood disorder without significant exacerbation in current . Indications Other reason(s) for admission: SROM History of Present care: good care Dating criteria: LMP confirmed by 1st trimester US Ultrasounds: normal mid trimester US Obstetrical complications: none Medical complications: none Preadmission Labs Blood type: A (+) positive -: Antibody screen: negative, Cystic fibrosis screen: unknown, GBS status: negative, HBsAG: negative, HIV: negative, HSV 1: unknown, HSV 2: unknown and RPR/VDLR: negative -: Chlamydia screen: not detected and Gonorrhea screen: not detected -: Rubella: not immune and Varicella: immune HCT: 35 HCAB: negative Cell-free DNA: low risk XY 1 hr GTT: 100 Prior (ies) History: SAB @ 4-5wga Evaluation Evaluation Baseline heart rate: 130 Variability: Moderate (11-25) monitor accelerations: Present Monitor Decelerations: Absent Contraction Frequency (minutes): 4 Uterine Contraction Intensity: Moderate Category of Tracing: Reactive Status: Category l Dilation (cm): 2 Effacement (%): 90 Dilation: 1-2 cm Effacement: >/=80% station: +1 Position of cervix: mid Consistency: soft Alfred score: 10 Non-invasive Membranes Rupture Test: positive Comments: +[facility]nisure [facility] Medical History Unilateral headache Anxiety Intentional self-harm Depression SAB (spontaneous ) (~04/2023) Acute streptococcal pharyngitis Surgical History [place] teeth extracted (~08/2022) Family History Mother Previous section Bipolar disorder Gestational diabetes Anemia affecting Mental health problem Father Family estrangement Mental health problem Grandmother Dental disease Family/Other Down syndrome Sister Mental health problem Grandfather History of heart disease Hyperlipidemia Hypertension Grandfather Hyperlipidemia Stroke Social History marital status: number of children: 0 household members: spouse lives independently: Yes caregiver/support person: No housing: apartment pets and animals: Yes (2 cats, managing litter box) education level: high school occupational status: unemployed current occupational exposures/hazards: No special juan needs: No travel history: recent seatbelt use: always water heater temp set < 120 deg: Yes working smoke detector in home: Yes fire extinguisher in home: No carbon monox detector in home: Yes firearms in home: No do you feel safe at home: Yes Smoking Status: Former smoker Tobacco: How many years used: 1 second hand exposure: Yes (mother smokes, but isn't around pt much) alcohol intake: former substance use type: marijuana during the past year weight has: other well-balanced diet: about half the time daily servings fruits/ve-4 caffeine: No Type(s) of exercise: walking frequency: 3-4 times per week Meds Home Medications and Allergies Home Medications Medication Instructions Recorded Confirmed Type vitamin-ferrous sulfate tab PO 09/14/23 03/07/24 History 27 mg iron-folic acid 0.8 mg tablet cetirizine 10 mg capsule (Zyrtec) 10 mg PO DAILY PRN allergy 12/27/23 03/07/24 Rx symptoms #30 caps hydrocortisone 1 % lotion 1 applic topical BID PRN Eczema 12/27/23 03/07/24 Rx #120 mL metoclopramide HCl 5 mg tablet 5 mg PO QAC #30 tabs 12/27/23 03/07/24 Rx (Reglan) sertraline 25 mg tablet 25 mg PO DAILY #90 tabs 02/01/24 03/07/24 Rx ondansetron 4 mg disintegrating 4 mg PO Q8H #60 tabs 02/08/24 03/07/24 Rx tablet ondansetron 4 mg disintegrating 4 mg PO Q8H PRN nausea and 03/03/24 03/07/24 Rx tablet vomiting #10 tabs famotidine 20 mg tablet 20 mg PO DAILY #90 tabs 03/04/24 03/07/24 Rx Allergies Allergy/AdvReac Type Severity Reaction Status Date / Time adhesive Allergy Blister Verified 03/07/24 12:00 Review of Systems Review of Systems ROS: Yes All systems reviewed with the patient and are negative except as otherwise documented OB Exam Vital signs Blood Pressure: 117/72 Pulse Rate: 78 Respiratory Rate: 18 Temperature: 97.7 F HENMT Head: normal to inspection Eyes General: appearance normal, both eyes and all related structures Resp Effort & Inspection: normal respiratory effort Extremities Lower extremity: Yes normal to inspection GI Inspection: normal to inspection and other (gravid, size c/w dates) External Female Exam: Yes normal external appearance Estimated Weight (lbs): 7 Amniotic Fluid: clear Objective Labs 03/28/24 01:35 Labs: Laboratory Results - last 24 hr 03/28/24 01:35 WBC 9.6 RBC 4.26 Hgb 11.7 L Hct 35.0 L MCV 82.2 MCH 27.5 MCHC 33.5 RDW 16.3 H Plt Count 252 Neut % (Auto) 76.3 H Lymph % (Auto) 18.0 L Tyler % (Auto) 4.9 Eos % (Auto) 0.3 L Baso % (Auto) 0.5 Neut # (Auto) 7300 H Lymph # (Auto) 1700 Tyler # (Auto) 500 Eos # (Auto) 0 Baso # (Auto) 0 Blood Type A Positive Antibody Screen Negative Assessment and Plan Assessment and Plan Assessment and Plan narrative: 18yo at 37w3d d=9wk US presents to birthing center with confirmed +SROM on arrival, early latent labor +SROM, early latent labor Pt desires epidural analgesia, anesthesia notified per RN CBC, T&S on admission PNL as above, note rubella non-immune, GBS negative Continue CEFM/toco, pitocin augmentation as indicated pending adequate analgesia Cat 1 tracing, maternal VSS/afebrile h/o maternal mood disorder high risk PPD, anticipate close interval f/u Patient is consented for vaginal, vaginal operative and delivery. She additionally consents to transfusion of blood products as medically indicated. Dispo: admit, anticipate Time-Based Coding :: [30] spent with patient and on the chart (including review of chart, obtaining history, exam, reviewing outside data, placing orders, documenting exam and treatment plan, and counseling patient) on [03/28/24].
[2024-03-28 05:36] VITALS: BP 117/72; PULSE 78; RESP 18; TEMP 36.5
--- NOTE | 2024-03-28 06:52 | PM.AN.REGBLK ---
[facility] <Ramya Mercado CRNA - Last Filed: 03/28/24 07:03> Pre-procedure Procedure: Continuous Lumbar Epidural for L&D Attending OB provider: Raquel Gill PMH/ROS narrative: at 37+4 with a PMH of borderline anemia, heartburn and nausea throughout , and cannabis smoking throughout requesting ALFIE for labor pain. PSH/Anesthesia history narrative: [place] teeth. Exam narrative: See pre-anesthesia evaluation. ASA Class: II Labs: Hct 35.0 % (36-46) L 03/28/24 01:35 Plt Count 252 X10^3/uL (150-400) 03/28/24 01:35 Medications: Current Medications Generic Name Dose Route Start Last Admin Trade Name Freq PRN Reason Stop Dose Admin Calcium Carbonate 1,000 mg 03/28/24 02:21 Calcium Carbonate 500 Mg Tab PO Q2HR PRN Dyspepsia Carboprost Tromethamine 250 mcg 03/28/24 02:21 Carboprost 250 Mcg/Ml Ampul IM Q90M PRN Bleeding Ephedrine Sulfate 10 mg 03/28/24 06:48 Ephedrine 50 Mg/Ml Vial IV Q5M PRN Blood pressure decrease more than 20% of baseline. Lactated Ringer's 1,000 mls @ 100 mls/hr 03/28/24 02:30 Lactated Ringers IV 03/28/24 12:29 CONT DEBBIE Oxytocin/Lactated Ringer's 30 unit in 500 mls @ 200 mls/hr 03/28/24 02:21 Oxytocin Premix IV CONT PRN Bleeding Protocol Tranexamic Acid 1,000 mg/ 100 mls @ 600 mls/hr 03/28/24 02:21 Sodium Chloride IV NOW PRN Bleeding FENT 2MCG/ML BUPIV 0.125% EPI 200 mcg in 100 mls @ 6 mls/hr 03/28/24 06:35 Fentanyl/Bupiv/Ns 2mcg/Ml - 0.125% EPIDURAL CONT DEBBIE Lidocaine HCl 20 ml 03/28/24 02:21 Lidocaine 1% 20 Ml INJ INTRA-OP PRN Post Delivery Methylergonovine Maleate 0.2 mg 03/28/24 02:21 Methylergonovine 0.2 Mg Tablet PO Q6HR PRN Heavy Bleeding Methylergonovine Maleate 0.2 mg 03/28/24 02:21 Methylergonovine 0.2 Mg/Ml Vial IM NOW PRN Bleeding Mineral Oil 30 ml 03/28/24 02:21 Mineral Oil 30 Ml Udc TOP PRN PRN Version Misoprostol 800 mcg 03/28/24 02:21 Misoprostol 200 Mcg Tablet WA NOW PRN Bleeding Misoprostol 400 mcg 03/28/24 02:21 Misoprostol 200 Mcg Tablet SL NOW PRN Bleeding Naloxone HCl 0.2 mg 03/28/24 02:21 Naloxone 0.4 Mg/Ml Vial IV Q2MIN PRN Opiate Reversal Ondansetron HCl 4 mg 03/28/24 02:21 Ondansetron 4 Mg/2 Ml Inj IV Q4HR PRN Nausea And Vomiting Oxytocin 10 unit 03/28/24 02:21 Oxytocin 10 Unit/Ml Vial IM NOW PRN Bleeding Allergies: Allergies Allergy/AdvReac Type Severity Reaction Status Date / Time adhesive Allergy Blister Verified 03/07/24 12:00 Procedure Insertion date: 03/28/24 Insertion time: 06:26 Prep/Local: 1% lidocaine (3mL to L4/L5, and 5mL to L3/L4 and CHG to back) Interspace: L3/L4 Patient position: sitting Needle: 18 gauge Silvano Loss of resistance with: saline MARYLIN at (cm): 8 Catheter placed at SKIN (cm): 12 Catheter in SPACE (cm): 4 Insertion: No CSF, No Blood, No Paresthesia with insertion, No Paresthesia with injection and No Test dose reaction Initial Medications TEST DOSE time: 06:27 TEST DOSE: 1.5% lidocaine with epinephrine 1:200k (mL): 3 BOLUS DOSE time: 06:35 BOLUS DOSE (mL): 6 BOLUS DOSE med: other (infusate) Infusion INFUSION: 0.125% bupivacaine and with fentanyl 2 mcg/mL Initial rate (mL/hr): 6 <Kacy Jack, [employer] CONTACT PRINTER - Last Filed: 03/29/24 02:00> Infusion Subsequent interventions: 1820 Turned rate up to 10cc/hr, 5cc 0.25% bupiv, 1845: No effect. Patient states her pain is 10/10. Catheter position checked. Pulled out .5cm. After discussion with patient, decision made to replace epidural. Sitting, chlorhex skin prep, sterile drape, 2% lido skin local, touhy needle at L4-5, MARYLIN with saline at 8cm, catheter left at 15cm at skin. Test dose negative. Bolused rest of test dose + 5cc o.25% bupiv, rate at 10cc/hr, bolus at 5cc q10min. Patient is more comfortable. Post-procedure Anesthesia date START: 03/28/24 Anesthesia time START: 06:26 Anesthesia date END: 03/28/24 Anesthesia time END: 23:36 Post-procedure Anesthesia Assessment: Yes CV function: HR/BP stable, Yes Resp function: RR/sat/airway adequate, Yes Post-op hydration adequate, Yes Pain control adequate, Yes Nausea & vomiting absent, Yes Temperature > 36 C, Yes Mental status appropriate and Yes Anesthesia complications
[2024-03-28] MEDS: LACTATED RINGERS 1,000 ML 100 ML IV ×3 (12:11→20:13)
[2024-03-28] MEDS: FENT 2MCG/ML BUPIV 0.125% EPI 200 MCG/100 ML PLAST..BAG 6 MCG EPIDURAL (12:11)
--- NOTE | 2024-03-28 12:28 | PM.OBPNLAB ---
Date/Time Date Patient Seen: 03/28/24 Time Patient Seen: 12:28 Pain Control Pain control: epidural Comments: feeling much more comfortable now with epidural in place, minimal cervical change, open to Pitocin Pelvic Exam Dilation (cm): 2 Effacement (%): 95 station: 0 Contractions Contraction frequency (min): 5 Contraction pattern: Irregular Contraction intensity: Moderate Status status: Category l Heart Rate Baseline: 130 Monitor Accelerations: Present Monitor Decelerations: Absent Monitor Variability: Moderate Assessment and Plan Plan: begin patient augmentation Comments: 18 year old female at 37w3d by 1st trimester US who presents with complaints of SROM at approximately 2300 on 03/27/24, clear fluid. Epidural was placed and she is now feeling more comfortable. Vargas cath initially very uncomfortable and pt requested removal but was replaced with lidocaine gel and was tolerated well. SVE with minimal change, will begin Pitocin augmentation. Now at 13 hours since time of rupture and showing no signs of intra-amniotic infection - Start Pit - Continuous monitoring - Epidural in place - continue wtih frequent vital signs to asses for infection risk - GBS negative - FHT reassuring, Cat 1 but TOCO showing somewhat irregular contraction pattern, hope for improvement with Pitocin - Rubella non-immune, PP MMR - Starting Hgb 11.7
[2024-03-28] MEDS: OXYTOCIN PREMIX 30 UNIT/500 ML PLAST..BAG IV (12:37)
--- NOTE | 2024-03-28 17:58 | PM.OBPNLAB ---
Date/Time Date Patient Seen: 03/28/24 Time Patient Seen: 17:58 Pain Control Pain control: epidural Comments: feeling more pressure, the epidural not controlling pressure well but otherwise is helping. Catheter is slightly uncomfortbale Pelvic Exam Dilation (cm): 4 Effacement (%): 90 station: -1 Comments: forebag present, ruptured, clear fluid at 17:43 IUPC placed at 17:46 without issue Contractions Pitocin rate (mU/min): 3 Contraction frequency (min): 5 Contraction pattern: Irregular Contraction intensity: Moderate Status status: Category l Heart Rate Baseline: 130 Monitor Accelerations: Present Monitor Decelerations: Periodic (occassional deceleration, one after forebag rupture but IUPC being placed so unsure of relationship to contraction ) Assessment and Plan Plan: continuous present management Comments: 18 year old female at 37w3d by 1st trimester US who presents with complaints of SROM at approximately 2300 on 03/27/24, clear fluid. On check, forebag present and ruptured wtih clear fluid followed by IUPC placement. One decleretaion noted after IUPC placement but non since in the last 10 min. MVUs grossly inadequate at this time but will trend further and increase Pit as able. contractions currently every 1-2 min so limiting ability to titrate pit - Continue Pit - Continuous monitoring - Epidural in place - continue with frequent vital signs to asses for infection risk - GBS negative - FHT with occasional decelerations but good variability in between - Rubella non-immune, PP MMR - Starting Hgb 11.7
[2024-03-28] MEDS: ONDANSETRON 4 MG/2 ML INJ IV (18:52)
--- NOTE | 2024-03-29 00:15 | PM.OBPRVD ---
Events: Other Labor & Delivery Delivery date: 03/28/24 Intrapartal Events: None Cervical ripening method: none Delivery augmentation: rupture of membranes and pitocin Delivery monitor: external FHT Route of delivery: L&D Laceration Description: Periurethral - 1st Degree, Vaginal - 1st Degree and Labial Delivery repair: vicryl Estimated blood loss (mL): 500 Quantitative Blood Loss: 578 Anesthesia Type: Epidural Narrative: 18yo at 37w3d presented after SROM of clear fluid at 23;00 on 03/27 and was admitted to Labor and Delivery. SVE was 1-290/+1. She was managed expectantly while awaiting epidural. After epidural, SVE showed minimal change so she was started on Pitocin augmentation. Due to slow progress, IUPC was placed. Forebag was noted and ruptured with clear fluid. The patient progressed and delivered a viable male infant out of LOT with APGARs 8/9 at 23:36 via . A large gush of clear fluid, approximately 1100mL was noted following delivery of the head. The cord was cut and clamped after 60 sec. The placenta delivered with gentle cord traction, and appeared complete. pitocin was started, initial at 350mu/min then when bleeding was noted to be brisk was increased to 999. The perineum and vagina were inspected with a small vaginal laceration in the posterio aspect which was repaired with 3-0 Vicryl and a right labial laceration with extension to periurethral which was repaired i na layer fashion with 4-0 Vicryl. Hemostasis was assured. Needle and sponge counts were correct.? The vagina was inspected and no items were left in situ. PREPROCEDURE DIAGNOSIS: Intrauterine at 37w4d SROM, clear fluid GBS negative RH positive POSTPROCEDURE DIAGNOSIS: Intrauterine at 37w4d, delivered Same as preprocedure Plan for aftercare: Routine care
[2024-03-29] MEDS: DERMOPLAST SPRAY 20% 60 ML 1 SPRAY TOP (02:53)
[2024-03-29] MEDS: WITCH HAZEL/GLYCERIN PADS 1 EACH TOP (02:54)
[2024-03-29] MEDS: IBUPROFEN 600 MG TABLET PO ×3 (02:54→18:10)
[2024-03-29] MEDS: ACETAMINOPHEN 325 MG TABLET 650 MG PO ×3 (02:54→18:10)
[2024-03-29 06:37] LABS: Add Manual Diff / Slide Review NO; Basophils Absolute Auto 0 /uL (0-100); Basophils Percent Auto 0.3 % (0-2); Eosinophils Absolute Auto 0 /uL (0-450); Eosinophils Percent Auto 0.2 % (2-4); Hemoglobin 10.8 g/dL (12.0-16.0); Lymphocytes Absolute Auto 1900 /uL (1100-4500); Mean Corpuscular HGB Conc 33.8 % (30-36); Mean Corpuscular Hemoglobin 27.8 PG (26-34); Mean Corpuscular Volume 82.2 fL (80-100); Monocytes Absolute Auto 700 /uL (0-900); Monocytes Percent Auto 5.6 % (3-14); Neutrophils Absolute Auto 10300 /uL (1500-7000); Neutrophils Percent Auto 78.9 % (50-75); Platelet Count 216 X10^3/uL (150-400); Red Blood Cell Count 3.89 X10^6/uL (4.0-5.2); Red Cell Distribution Width 16.2 % (11.6-14.8)
[2024-03-29] MEDS: DOCUSATE 100 MG CAPSULE PO (09:45)
[2024-03-29] MEDS: SERTRALINE 50 MG TABLET 25 MG PO (09:45)
[2024-03-29] MEDS: PRENATAL VIT,CALC/IRON/FOLIC 1 TABLET 1 TAB PO (09:45)
--- NOTE | 2024-03-29 09:45 | P.PNOB_ITS ---
Subjective - OB Subjective Patient comments: no complaints and pain well controlled [place] baby status: doing well and nursing well feeding status: exclusively breast feeding Date Patient Seen: 03/29/24 Time Patient Seen: 07:45 Exam Narrative Exam Narrative: Gen: sitting up in bed holding baby, NAD Pulm: breathing comfortbaly CV: warm and well perfused NEuro: non-focal Objective Labs 03/29/24 06:00 Labs: Laboratory Results - last 24 hr 03/29/24 06:00 WBC 13.0 H RBC 3.89 L Hgb 10.8 L Hct 32.0 L MCV 82.2 MCH 27.8 MCHC 33.8 RDW 16.2 H Plt Count 216 Neut % (Auto) 78.9 H Lymph % (Auto) 15.0 L [place] % (Auto) 5.6 Eos % (Auto) 0.2 L Baso % (Auto) 0.3 Neut # (Auto) 00896 H Lymph # (Auto) 1900 [place] # (Auto) 700 Eos # (Auto) 0 Baso # (Auto) 0 Assessment & Plan Plan day: 1 plan OB: routine care Comments: 18 yo G2 now P1 who delivered a male via overnight. She is doing well this AM with leslye bleeding and minimal pain. she is well. She did experience slightly higher than normal bleeding but AM Hgb showed a drop from 11.7 to 10.8 and no anemia sx so overall reassure. Routine care, plan for dc tomorrow
[2024-03-29] MEDS: FAMOTIDINE 20 MG TABLET PO (09:46)
[2024-03-29 19:26] VITALS: BP 117/72; PULSE 78; RESP 18; TEMP 36.5
[2024-03-30] MEDS: ACETAMINOPHEN 325 MG TABLET 650 MG PO ×2 (00:21→06:33)
[2024-03-30] MEDS: IBUPROFEN 600 MG TABLET PO ×2 (00:22→06:33)
[2024-03-30] MEDS: LANOLIN OINT 7 GM 1 APPLIC TOP (06:37)
--- NOTE | 2024-03-30 09:32 | PM.OBDS.1 ---
Discharge Providers Provider Date of admission: 03/28/24 00:50 Discharge Date: 03/30/24 Primary care physician: Raquel Gill MD Consults: 03/28/24 02:21 Consult to Anesthesiology Urgent Comment: Consulting Provider: Anesthesiologist Reason for consultation: Epidural 03/30/24 00:47 Consult to Quality Review Trainer Routine Comment: Discharge provider: Raquel Gill MD Summary Hospital Course Date Patient Seen: 03/30/24 Time Patient Seen: 08:20 Hospital Course: 18yo at 37w3d presented after SROM of clear fluid at 23;00 on 03/27 and was admitted to Labor and Delivery. SVE was 1-2/90/+1. She was managed expectantly while awaiting epidural. After epidural, SVE showed minimal change so she was started on Pitocin augmentation. Due to slow progress, IUPC was placed. Forebag was noted and ruptured with clear fluid. The patient progressed and delivered a viable male infant out of LOT with APGARs 8/9 at 23:36 via . A large gush of clear fluid, approximately 1100mL was noted following delivery of the head. The cord was cut and clamped after 60 sec. The placenta delivered with gentle cord traction, and appeared complete. pitocin was started, initial at 350mu/min then when bleeding was noted to be brisk was increased to 999. The perineum and vagina were inspected with a small vaginal laceration in the posterio aspect which was repaired with 3-0 Vicryl and a right labial laceration with extension to periurethral which was repaired i na layer fashion with 4-0 Vicryl. Hemostasis was assured. course was uncomplicated. Bleeding has been minimal and pain is controlled with oral medications. Fundus was firm on exam and vital were reassuring throughout Peripartum Data Delivery Method: Natural Vaginal Laceration Description: Periurethral - 1st Degree, Vaginal - 1st Degree and Labial complications: none Status at Discharge Cognitive/behavioral status at discharge: oriented Functional status at discharge: independent ambulation Time Spent with Patient Time attestation: Total time spent providing and/or coordinating discharge services: Objective Labs 03/29/24 06:00 Exam Narrative Exam Narrative: Gen: Independently ambulating in room, NAD Pulm: breathing comfortably on RA CV: warm and well perfused Abd: fundus firm, non-tender MSK: independent ambulation without defects Discharge Plan Discharge Plan Patient Disposition: Home Discharge orders & Medications Prescriptions: Continued hydrocortisone 1 % lotion 1 applic topical BID PRN (Reason: Eczema ) Qty: 120 0RF Zyrtec 10 mg capsule 10 mg PO DAILY PRN (Reason: allergy symptoms) Qty: 30 0RF metoclopramide HCl [Reglan] 5 mg tablet 5 mg PO QAC Qty: 30 0RF Rx Instructions: administer 30 minutes before meals sertraline 25 mg tablet 25 mg PO DAILY Qty: 90 4RF famotidine 20 mg tablet 20 mg PO DAILY Qty: 90 4RF vit-ferrous sulfat-FA 27 mg iron- 0.8 mg tablet 1 tab PO DAILY ondansetron 4 mg tablet,disintegrating 4 mg PO Q8H PRN (Reason: nausea and vomiting) Qty: 10 0RF Follow up/Referrals: Raquel Gill MD [Primary Care Provider] - ( Appt w/ Dr. Gill: Monday, @ 10:30am) Visit Report/Discharge Packet Stand Alone Forms: Patient Portal/API, Stroke Signs & Symptoms Discharge Data Primary Care Provider: Raquel Gill Discharges patient from system. Discharge Date/Time: 03/30/24 11:48
[2024-03-30 12:55] VITALS: BP 125/77; PULSE 64; RESP 18; TEMP 36.8
== END 2024-03-30 11:48 | disposition home or self-care (01) | DRG 806 ==
PROVIDERS: Admitting Provider Obstetrics & Gynecology; Family Provider Specialist; PCP Family Medicine; Referring Provider Obstetrics & Gynecology; Visit Provider Obstetrics & Gynecology
DX: O42.12 Full-term premature rupture of membranes, onset of labor more than 24 hours following rupture (principal); O99.324 Drug use complicating childbirth; Z37.0 Single live birth; F12.90 Cannabis use, unspecified, uncomplicated; O76 Abnormality in fetal heart rate and rhythm complicating labor and delivery; Z3A.37 37 weeks gestation of pregnancy; O71.82 Other specified trauma to perineum and vulva; O70.0 First degree perineal laceration during delivery; O99.214 Obesity complicating childbirth
CPT/HCPCS: 36415; 59050; 84112; 85025; 86850; 86900; 86901; A9270; G0379; J2405; J2590; J3010

== ENCOUNTER 2024-03-31 14:56 | Emergency (ER) | payer OTHER, SELFPAY ==
[2024-03-31 15:00] VITALS: BP 131/82; PULSE 81; RESP 16; TEMP 36.6; O2SAT 97; BMI 35.9
--- NOTE | 2024-03-31 15:39 | ED.PREGNANCY ---
HPI - <Jordyn Kramer PA-C - Last Filed: 03/31/24 16:12> General Chief complaint: Vaginal Bleeding Stated complaint: Torn Stitches Time Seen by Provider: 03/31/24 15:11 Source: patient Mode of arrival: Ambulatory History of Present Illness HPI Narrative: Patient is a very pleasant 18-year-old female that presents to the emergency room department today complaining of vaginal bleeding, concerns, bleeding. Patient presented to OBGYN on 03/28 delivery of 1 fetus 7 lb male without any issues or problems. Patient is a 010. Patient was discharged after being in the hospital for 2 days. Patient discharged on 03/30 in stable condition. Fetus was discharged with the patient in stable condition. Delivery was vaginal. Patient sustained a right labial laceration that was repaired with 3-0 Vicryl. Patient also had a periurethral laceration that was repaired in layered fashion with 4-0 Vicryl. Patient presents with no abdominal pain, no cramping but onset of vaginal bleeding that was more than she has been having. Patient states that her vaginal bleeding had tapered off, however today increase in vaginal bleeding, initially started off as pink and then increased inconsistency, started to get progressively brighter, and larger amounts. She does state that she thinks that she did a little bit more than she should have today and thinks that perhaps this is what is causing the bleeding. Patient states she was mildly dizzy, she does have a history of anemia associated with her . Her initial hematocrit was 11.7 during her and during the initial labs with her vaginal . She has no other physical complaints currently at this time. Related Data Home Medications Medication Instructions Recorded Confirmed vitamin-ferrous sulfate 1 tab PO DAILY 09/14/23 03/29/24 27 mg iron-folic acid 0.8 mg tablet Previous Rx's Medication Instructions Recorded cetirizine 10 mg capsule (Zyrtec) 10 mg PO DAILY PRN allergy 12/27/23 symptoms #30 caps hydrocortisone 1 % lotion 1 applic topical BID PRN Eczema 12/27/23 #120 mL metoclopramide HCl 5 mg tablet 5 mg PO QAC #30 tabs 12/27/23 (Reglan) sertraline 25 mg tablet 25 mg PO DAILY #90 tabs 02/01/24 ondansetron 4 mg disintegrating 4 mg PO Q8H PRN nausea and 03/03/24 tablet vomiting #10 tabs famotidine 20 mg tablet 20 mg PO DAILY #90 tabs 03/04/24 Allergies Allergy/AdvReac Type Severity Reaction Status Date / Time adhesive Allergy Blister Verified 03/07/24 12:00 Review of Systems <Jordyn Kramer PA-C - Last Filed: 03/31/24 16:12> Review of Systems Narrative: Negative except as above Genitourinary Comments: Vaginal bleeding, bleeding. PMFSH - <Jordyn Kramer PA-C - Last Filed: 03/31/24 16:12> Past Medical History Medical history: Reports non-contributory Surgical history: Reports no surgical history Exam <VIVI Nunez Last Filed: 03/31/24 16:12> Initial Vital Signs Initial Vital Signs: Vital Signs Temperature 97.8 F 03/31/24 15:00 Pulse Rate 81 03/31/24 15:00 Respiratory Rate 16 03/31/24 15:00 Blood Pressure 131/82 03/31/24 15:00 Pulse Oximetry 97 03/31/24 15:00 Oxygen Delivery Method Room Air 03/31/24 15:00 Reviewed Const General: cooperative, healthy appearing, comfortable, well developed, well groomed, No acute distress and No in distress Nutritional Appearance: average body habitus and well nourished Eyes Pupils: PERRL EOM: EOM intact bilaterally External Female Exam: normal external appearance and external swelling (Patient is 3-1/2 days status post vaginal delivery patient has some dry blo) Other: Exam of the external genitalia normal, mild swelling of the external vaginal area which is normal status post vaginal delivery. There is dry and some blood that is noted. External genitalia is mildly swollen, she has in place stitches on the right labial area and the periurethral area that are intact. Internal vaginal labia minora is mildly swollen. Speculum exam. There is a scant amount of bright red blood in the vaginal area. Currently no bleeding. The rugae in the vaginal area is normal. The cervix is quite edematous. Associated with recent vaginal . Bimanual was not done. Skin Other: Warm pink and dry, cap refill is preserved, pulses are present. Neuro General: patient alert, patient awake, patient oriented x3, oriented and gait normal Cognition: normal cognition Speech: speech normal Gait: normal gait Motor: muscle tone normal throughout and strength 5/5 throughout <Micheline Thomas MD - Last Filed: 03/31/24 17:19> Initial Vital Signs Initial Vital Signs: Vital Signs Temperature 97.8 F 03/31/24 15:00 Pulse Rate 81 03/31/24 15:00 Respiratory Rate 16 03/31/24 15:00 Blood Pressure 131/82 03/31/24 15:00 Pulse Oximetry 97 03/31/24 15:00 Oxygen Delivery Method Room Air 03/31/24 15:00 Course <Jordyn Kramer PA-C - Last Filed: 03/31/24 16:12> Orders Ordered: ED Orders 03/31/24 15:55 CBC No Diff [Complete Blood Count NO DIFF] Stat Consultations Consultation #1: Spoke with Dr. Bailey's who is the marketing finance specialist on-call today for the group. Discussed this patient with Dr. Jesus. Spleen the patient is a 010 who just underwent a vaginal on 03/28, who sustained a right labial laceration and periurethral laceration of both repaired with Vicryl. Who presents to the emergency department with vaginal bleeding, concern for bleeding, patient thinks that she might have overdone it stay. With stable vital signs, and no other physical complaints. Went over the vaginal exam with her. Discussed that I was going to repeat an H and H. If that was stable the patient most likely would then be discharged. Discussed with her she felt an ultrasound was warranted. Currently at this time the physician did not feel an ultrasound was warranted. Upon discharge the patient should be advised to call her OBGYN on Monday and make an appointment for follow-up. Of course to be given ED precautions prior to discharge. Vital Signs Vital signs: Vital Signs - 8 hr 03/31/24 15:00 03/31/24 16:32 Temperature 97.8 F Pulse Rate 81 63 Respiratory Rate 16 20 Blood Pressure 131/82 118/70 Pulse Oximetry 97 97 Oxygen Delivery Method Room Air Room Air Reviewed, patient is not tachycardic, she has not tachypneic, she has not hypotensive, and she currently does not have a fever. <Micheline Thomas MD - Last Filed: 03/31/24 17:19> Orders Ordered: ED Orders 03/31/24 15:55 CBC No Diff [Complete Blood Count NO DIFF] Stat Vital Signs Vital signs: Vital Signs - 8 hr 03/31/24 15:00 03/31/24 16:32 Temperature 97.8 F Pulse Rate 81 63 Respiratory Rate 16 20 Blood Pressure 131/82 118/70 Pulse Oximetry 97 97 Oxygen Delivery Method Room Air Room Air MDM - OB/Uterine Contractions <Jordyn Kramer PA-C - Last Filed: 03/31/24 16:12> Medical Records Medical records narrative: OB records have been reviewed Lab Data 03/31/24 15:55 Labs: Lab Results 03/31/24 Range/Units 15:55 WBC 10.9 (4.5-11.0) X10^3/uL RBC 3.61 L (4.0-5.2) X10^6/uL Hgb 10.2 L (12.0-16.0) g/dL Hct 29.9 L (36-46) % MCV 82.8 (80-100) fL MCH 28.3 (26-34) PG MCHC 34.1 (30-36) % RDW 16.9 H (11.6-14.8) % Plt Count 269 (150-400) X10^3/uL Reviewed and currently stable. Patient does not have a white count, H and H is stable does not need a blood transfusion. Platelet count is normal. MDM Narrative Medical decision making narrative: 18-year-old female status post recent vaginal delivery. G-tube P 101 0 who presents with bleeding and concern for bleeding. Who thinks perhaps she overdid it today which is causing the bleeding. With no recent syncope, abdominal pain or cramping. Who states that she is going through wanted to pull ups with blood. Who presents to the emergency department with concern. Patient did not contact her client advocate prior to being seen here in the emergency department. She does have a follow-up appointment that is scheduled. No abdominal pain or cramping. Exam as above. Discussion with Dr. Bailey's who is the lead systems architect on-call as above. Speculum exam H&H patient does not have white count, H and H stable, platelets are normal. Discussed the possible ultrasound Dr. Jesus does not feel an ultrasound is warranted Differential diagnosis; bleeding, exacerbation due to over exertion, Supportive therapy education ED precautions, bedrest, follow up with her primary care doctor, make an appointment and reach out her OBGYN on Monday. Return to the emergency department as needed. <Micheline Thomas MD - Last Filed: 03/31/24 17:19> Lab Data Labs: Lab Results 03/31/24 Range/Units 15:55 WBC 10.9 (4.5-11.0) X10^3/uL RBC 3.61 L (4.0-5.2) X10^6/uL Hgb 10.2 L (12.0-16.0) g/dL Hct 29.9 L (36-46) % MCV 82.8 (80-100) fL MCH 28.3 (26-34) PG MCHC 34.1 (30-36) % RDW 16.9 H (11.6-14.8) % Plt Count 269 (150-400) X10^3/uL Discharge Plan Departure Patient Disposition: Home Clinical Impression: bleeding Qualifiers: hemorrhage type: unspecified Qualified Code(s): O72.1 - Other immediate hemorrhage Activity Restrictions/Additional Instructions: Bed rest, gentle massage. Please call your OBGYN on Monday appointment in the clinic. Return to the emergency needed. Return for weakness, dizziness, lightheadedness fainting or near fainting. Increased bleeding. Prescriptions: No Action hydrocortisone 1 % lotion 1 applic topical BID PRN (Reason: Eczema ) Qty: 120 0RF Zyrtec 10 mg capsule 10 mg PO DAILY PRN (Reason: allergy symptoms) Qty: 30 0RF metoclopramide HCl [Reglan] 5 mg tablet 5 mg PO QAC Qty: 30 0RF Rx Instructions: administer 30 minutes before meals sertraline 25 mg tablet 25 mg PO DAILY Qty: 90 4RF famotidine 20 mg tablet 20 mg PO DAILY Qty: 90 4RF vit-ferrous sulfat-FA 27 mg iron- 0.8 mg tablet 1 tab PO DAILY ondansetron 4 mg tablet,disintegrating 4 mg PO Q8H PRN (Reason: nausea and vomiting) Qty: 10 0RF Referrals: Raquel Gill MD [Primary Care Provider] - Stand Alone Forms: Patient Portal/API ED Sign-out <Micheline Thomas MD - Last Filed: 03/31/24 17:19> Cosign ED Attending Cosignature Attestation: I did not see this patient. I was available all times for consultation.
[2024-03-31 16:03] LABS: Hematocrit 29.9 % (36-46); Hemoglobin 10.2 g/dL (12.0-16.0); Mean Corpuscular HGB Conc 34.1 % (30-36); Mean Corpuscular Hemoglobin 28.3 PG (26-34); Mean Corpuscular Volume 82.8 fL (80-100); Platelet Count 269 X10^3/uL (150-400); Red Blood Cell Count 3.61 X10^6/uL (4.0-5.2); Red Cell Distribution Width 16.9 % (11.6-14.8); White Blood Cell Count 10.9 X10^3/uL (4.5-11.0)
[2024-03-31 16:32] VITALS: BP 118/70; PULSE 63; RESP 20; O2SAT 97
== END 2024-03-31 16:33 | disposition home or self-care (01) ==
PROVIDERS: Emergency Provider Physician Assistant; Family Provider Specialist; PCP Family Medicine
DX: O72.1 Other immediate postpartum hemorrhage (principal)
CPT/HCPCS: 85027; 99281; 99283

== ENCOUNTER → 2025-04-07 16:34 | Outpatient (CLI) | payer OTHER, SELFPAY ==
[2025-04-07 18:30] LABS: HCG Quantitative /Beta subunit < 2.39 mIU/mL
== END ==
PROVIDERS: PCP Family Medicine; Referring Provider Family Medicine; Visit Provider Family Medicine
DX: N92.6 Irregular menstruation, unspecified (principal)
CPT/HCPCS: 36415; 84702

== ENCOUNTER 2025-06-09 15:37 | Emergency (ER) | payer OTHER, SELFPAY ==
[2025-06-09 15:57] VITALS: BP 128/78; PULSE 87; RESP 17; TEMP 37; O2SAT 97; BMI 33.3
--- NOTE | 2025-06-09 16:08 | ED_ITS ---
HPI - Abdominal Pain General Chief Complaint: Abdominal Pain Stated Complaint: LRQ abd pain, twisting x 1 week Time Seen by Provider: 06/09/25 16:07 Source: patient Mode of arrival: Ambulatory History of Present Illness HPI narrative: 20-year-old female patient, 2 para 1 SAB 1 who complains of waxing and waning right lower quadrant pain over the last week and a half with decreased appetite and chills but no documented fever. Nausea but no vomiting or diarrhea. Denies urinary symptoms. No previous surgeries. Related Data Home Medications ?Medication ?Instructions ?Recorded ?Confirmed vitamin-ferrous sulfate 1 tab PO DAILY 04/07/25 27 mg iron-folic acid 0.8 mg tablet Previous Rx's ?Medication ?Instructions ?Recorded cetirizine 10 mg capsule (Zyrtec) 10 mg PO DAILY PRN a llergy 12/27/23 symptoms #30 caps hydrocortisone 1 % lotion 1 applic topical BID PRN Ecz trent 12/27/23 #120 mL ondansetron 4 mg disintegrating 4 mg PO Q8H PRN nausea and 03/03/24 tablet vomiting #10 tabs famotidine 20 mg tablet 20 mg PO DAILY #90 tabs 02/14 04/09 venlafaxine 37.5 mg 37.5 mg PO DAILY #180 caps 1 capsule,extended release 24 hr norelgestromin 150 mcg-e.estradiol 1 patch transdermal QWEEK #3 ea 04/07/25 35 mcg/24 hr weekly transderm patch (Xulane) etonogestrel 0.12 mg-ethinyl 1 vag ring vaginal Q4W #9 ea 04/22/25 estradiol 0.015 mg/24 hr vaginal ring (NuvaRing) Allergies Allergy/AdvReac Type Severity Reaction Status Date / Time adhesive Allergy Blister Verified 04/07/25 16:04 Review of Systems Review of Systems ROS Unobtainable: All systems reviewed & are unremarkable except as noted in HPI and below Gastrointestinal Gastrointestinal: Reports as per HPI and Reports abdominal pain Patient History Medical History (Updated 06/09/25 @ 21:51 by Mac Valdovinos MD) mood disorder Unilateral headache Anxiety Intentional self-harm Depression SAB (spontaneous ) (~04/2023) Acute streptococcal pharyngitis Surgical History [place] teeth extracted (~08/2022) Family History Mother Previous section Bipolar disorder Gestational diabetes Anemia affecting Mental health problem Father Family estrangement Mental health problem Grandmother Dental disease Family/Other Down syndrome Sister Mental health problem Grandfather History of heart disease Hyperlipidemia Hypertension Grandfather Hyperlipidemia Stroke Social History marital status: number of children: 0 household members: spouse lives independently: Yes caregiver/support person: No housing: apartment pets and animals: Yes (2 cats, managing litter box) education level: high school occupational status: unemployed current occupational exposures/hazards: No special juan needs: No travel history: recent seatbelt use: always water heater temp set < 120 deg: Yes working smoke detector in home: Yes fire extinguisher in home: No carbon monox detector in home: Yes firearms in home: No do you feel safe at home: Yes Tobacco: How many years used: 1 second hand exposure: Yes (mother smokes, but isn't around pt much) alcohol intake: former substance use type: marijuana during the past year weight has: other well-balanced diet: about half the time daily servings fruits/ve-4 caffeine: No Type(s) of exercise: walking frequency: 3-4 times per week alcohol intake frequency: other Exam Narrative Exam Narrative: General: Alert and conversant. No distress. Appears well nourished and well hydrated Lungs: Clear to auscultation with good air movement. No wheezing, rales or rhonchi. No respiratory distress Cardiac: Regular rate and rhythm with no appreciable murmur or gallop Abdomen: Soft, moderate tenderness and equivocal rebound at McBurney's point. With no distention or masses. Normal bowel sounds. Musculoskeletal: Exam of the extremities, axial spine and ribcage reveals no deformity, bony tenderness or swelling. Range of motion intact Neuro: Alert and oriented. Cranial nerves, motor, sensory and cerebellar all grossly intact. No focal deficit Skin: Warm and normal color. No rashes Psychological: Normal affect and interaction. No evidence of delusion or psychosis. Normal mood. Initial Vital Signs Initial Vital Signs: Vital Signs Temperature 98.6 F 11/24/25 15:57 Pulse Rate 87 06/09/25 15:57 Respiratory Rate 17 06/09/25 15:57 Blood Pressure 128/78 06/09/25 15:57 Pulse Oximetry 97 06/09/25 15:57 Oxygen Delivery Method Room Air 06/09/25 15:57 Course Orders Ordered: ED Orders 06/09/25 16:17 CBC Auto Diff [Complete Blood Count AUTO DIFF] Stat CMP [Comprehensive Metabolic Panel] Stat 06/09/25 18:32 Urinalysis and Microscopic Stat 06/09/25 20:11 CT abdomen pelvis w con Stat Discontinued Medications Sodium Chloride (Normal Saline 0.9%) 1,000 mls @ 1,000 mls/hr IV BOLUS ONE Stop: 06/09/25 17:41 Last Infusion: 06/09/25 18:21 Dose: Infused Documented By: Admin: 06/09/25 17:10 Dose: 1,000 mls/hr Documented By: MARINA Vital Signs Vital signs: Vital Signs - 8 hr 06/09/25 15:57 06/09/25 21:27 06/09/25 21:28 Temperature 98.6 F Pulse Rate 87 66 Respiratory Rate 17 20 Blood Pressure 128/78 105/59 L Pulse Oximetry 97 97 Oxygen Delivery Method Room Air MDM - Abdominal Pain Differential Diagnosis Differential diagnosis: Likely acute appendicitis, calculus of kidney, diverticulitis, gastroenteritis and small bowel obstruction Condition is:: Improved Medical Records Attestation: I reviewed the patient's medical records. Lab Data Attestation: I reviewed the patient's lab results. Lab results narrative: CBC, urinalysis and CMP unremarkable 06/09/25 16:17 06/09/25 16:17 Labs: Lab Results 06/09/25 06/09/25 Range/Units 16:17 18:32 WBC 5.4 (4.5-11.0) X10^3/uL RBC 5.25 H (4.0-5.2) X10^6/uL Hgb 14.3 (12.0-16.0) g/dL Hct 42.8 (36-46) % MCV 81.5 (80-100) fL MCH 27.2 (26-34) PG MCHC 33.4 (30-36) % RDW 14.6 (11.6-14.8) % Plt Count 298 (150-400) X10^3/uL Neut % (Auto) 60.3 (50-75) % Lymph % (Auto) 33.7 (25-40) % [place] % (Auto) 4.3 (3-14) % Eos % (Auto) 1.1 L (2-4) % Baso % (Auto) 0.6 (0-2) % Neut # (Auto) 3300 (4098-3415) /uL Lymph # (Auto) 1800 (8885-7410) /uL [place] # (Auto) 200 (0-900) /uL Eos # (Auto) 100 (0-450) /uL Baso # (Auto) 0 (0-100) /uL Sodium 140 (137-145) mmol/L Potassium 3.9 (3.4-5.1) mmol/L Chloride 106 (98-107) mmol/L Carbon Dioxide 23 (22-32) mmol/L BUN 13 (7-17) mg/dL Creatinine 0.64 (0.52-1.04) mg/dL Estimated GFR > 60 (>60) mL/min BUN/Creatinine Ratio 20.3 (6-22) Glucose 100 H (70-99) mg/dL Calcium 9.3 (8.4-10.2) mg/dL Total Bilirubin 0.6 (0.2-1.3) mg/dL AST 28 (14-36) IU/L ALT 16 (<35) IU/L Alkaline Phosphatase 79 (38-126) U/L Total Protein 9.0 H (6.3-8.2) g/dL Albumin 5.0 (3.5-5.0) g/dL Globulin 4.0 (1.7-4.1) g/dL Albumin/Globulin Ratio 1.3 (1.0-2.8) Urine Color Yellow Urine Appearance Clear Urine pH 6.5 (4.5-8.0) Ur Specific [place] 1.010 (1.000-1.035) Urine Protein Negative (Negative) Urine Glucose (UA) Negative (Negative) g/dL Urine Ketones Negative (NEGATIVE) Urine Occult Blood Negative (Negative) Urine Nitrate Negative (Negative) Urine Bilirubin Negative (NEGATIVE) Urine Urobilinogen 0.2 (0.2) E.U./dL Ur Leukocyte Esterase Negative (NEGATIVE) Urine RBC 0-1/hpf (0-5/HPF) Urine WBC 0-1/hpf (0-5/HPF) Ur Squamous Epith Cells 1-5 /hpf (0-5/HPF) Urine Bacteria Occasional (0-1) (None) Ur Culture Indicated? Cult not indicated Vol Urine Centrifuged 10ml (spun) Point of care testing: Point of Care Testing Test Results Negative Imaging Data CT scan - abdomen/pelvis: Radiologist's Impression: IMPRESSION: No evidence of appendicitis. Segment of mild bowel wall thickening of the ascending, transverse, and proximal descending colon suggestive of mild infectious or inflammatory colitis. [facility] Narrative Medical decision making narrative: Patient had unremarkable lab work continued to have significant right lower quadrant tenderness at McBurney's point and I felt obligated to rule out appendicitis by CT scan. This was accomplished and the CT scan was essentially unremarkable other than some mild bowel wall thickening of the ascending colon. However she has no diarrhea or symptoms of viral or bacterial colitis. Patient has right lower quadrant pain with unremarkable lab work and CT scan. She was given reassurance and monitor symptoms. Follow up with primary care. May need further assessment such as colonoscopy if symptoms persist. Discharge Plan Departure Patient Disposition: Home Clinical Impression: Acute right lower quadrant pain Instructions: Acute Abdominal Pain Activity Restrictions/Additional Instructions: Assessment: Right lower quadrant pain with negative lab work and CT scan. Does not appear to be a surgical problem such as appendicitis. Plan is rest, hydration and [id number] medicine. Follow up with your doctor if not improving. Return to the ER if worse Prescriptions: No Action venlafaxine 37.5 mg capsule,extended release 24hr 37.5 mg PO DAILY Qty: 180 2RF hydrocortisone 1 % lotion 1 applic topical BID PRN (Reason: Eczema ) Qty: 120 0RF Zyrtec 10 mg capsule 10 mg PO DAILY PRN (Reason: allergy symptoms) Qty: 30 0RF norelgestromin-ethin.estradiol [Xulane] 150-35 mcg/24 hr patch weekly 1 patch transdermal QWEEK Qty: 3 2RF Rx Instructions: apply once weekly for 3 weeks of a 4-week cycle famotidine 20 mg tablet 20 mg PO DAILY Qty: 90 4RF etonogestrel-ethinyl estradiol [NuvaRing] 0.12-0.015 mg/24 hr ring 1 vag ring vaginal Q4W Qty: 9 4RF Rx Instructions: leave in place for 3 weeks of a 4-week cycle vit-ferrous sulfat-FA 27 mg iron- 0.8 mg tablet 1 tab PO DAILY ondansetron 4 mg tablet,disintegrating 4 mg PO Q8H PRN (Reason: nausea and vomiting) Qty: 10 0RF Referrals: Raquel Gill MD [Primary Care Provider, Family Practice] Stand Alone Forms: Patient Portal/API
[2025-06-09 16:51] LABS: Add Manual Diff / Slide Review NO; Hematocrit 42.8 % (36-46); Hemoglobin 14.3 g/dL (12.0-16.0); Lymphocytes Absolute Auto 1800 /uL (1100-4500); Mean Corpuscular HGB Conc 33.4 % (30-36); Mean Corpuscular Hemoglobin 27.2 PG (26-34); Mean Corpuscular Volume 81.5 fL (80-100); Platelet Count 298 X10^3/uL (150-400)
[2025-06-09 16:55] LABS: Alanine Aminotransferase 16 IU/L (<35); Albumin 5.0 g/dL (3.5-5.0); Albumin Globulin Ratio 1.3 (1.0-2.8); Alkaline Phosphatase 79 U/L (38-126); Blood Urea Nitrogen 13 mg/dL (7-17); Calcium 9.3 mg/dL (8.4-10.2); Carbon Dioxide 23 mmol/L (22-32); Chloride 106 mmol/L (98-107); Estimated Glomerular Filt Rate > 60 mL/min (>60); Globulin 4.0 g/dL (1.7-4.1); Glucose 100 mg/dL (70-99); HEMOLYSIS 20 (0-50); Potassium 3.9 mmol/L (3.4-5.1); Sodium 140 mmol/L (137-145); Total Protein 9.0 g/dL (6.3-8.2)
[2025-06-09] MEDS: SODIUM CHLORIDE 0.9% 1,000 ML 1000 ML IV (17:10)
[2025-06-09 18:36] LABS: Appearance Urine UA CLEAR; Bilirubin Urine UA NEGATIVE (NEGATIVE); Color Urine UA YELLOW; Glucose Urine UA NEGATIVE (Negative); Ketones Urine UA NEGATIVE (NEGATIVE); Leukocyte Esterase Urine UA NEGATIVE (NEGATIVE); Nitrite Urine UA NEGATIVE (Negative); Occult Blood Urine UA NEGATIVE (Negative); Protein Urine UA NEGATIVE (Negative); Specific Gravity Urine UA 1.010 (1.000-1.035); Urobilinogen Urine UA 0.2 E.U./dL (0.2); pH Urine UA 6.5 (4.5-8.0)
[2025-06-09 18:44] LABS: Culture Indicated Urine Cult Not Indicated
--- NOTE | 2025-06-09 20:11 | DI.CT.S_ITS ---
PROCEDURE: CT ABDOMEN PELVIS W CON INDICATIONS: Severe right lower quadrant pain TECHNIQUE: After the administration of intravenous contrast, axial sections acquired from the lung bases to the pubic symphysis. Coronal and sagittal reformats were performed. For radiation dose reduction, the following was used: automated exposure control, adjustment of mA and/or kV according to patient size. COMPARISON: None. FINDINGS: Image quality: Diagnostic. Lower Chest: No significant findings. ABDOMEN: Liver: No solid mass. Gallbladder: No radiopaque gallstones or wall thickening. Biliary ducts: No biliary dilation. Pancreas: No ductal dilation. Spleen: Size is within normal limits. Adrenal Glands: No adrenal nodules. Kidneys and Ureters: No hydronephrosis. No solid mass. No complex renal cystic lesion which requires follow up. Stomach and Bowel: Normal colonic caliber, without significant wall thickening. The appendix is within normal limits. Segmental mild wall thickening of the ascending, transverse, and proximal descending colon. Peritoneum: No abnormal intraperitoneal fluid. No free air. Ventral Wall: No significant ventral hernia. Abdominal Nodes: No retroperitoneal or mesenteric adenopathy by size criteria. Vessels: Aorta and inferior vena cava are normal in size. PELVIS: Pelvic Organs: Unremarkable. Phleboliths are demonstrated within the pelvis. Bladder: No bladder wall thickening, accounting for underdistention. Pelvic Nodes: No enlarged lymph nodes. Miscellaneous: No inguinal hernias are seen. Bones: No aggressive osseous abnormality. IMPRESSION: No evidence of appendicitis. Segment of mild bowel wall thickening of the ascending, transverse, and proximal descending colon suggestive of mild infectious or inflammatory colitis. Dictated by: Gigi Flower M.D. on 06/09/2025 at 20:31 Approved by: Gigi Flower M.D. on 06/09/2025 at 20:34
[2025-06-09 21:27] VITALS: BP 105/59
[2025-06-09 21:28] VITALS: PULSE 66; RESP 20; O2SAT 97
== END 2025-06-09 21:59 | disposition home or self-care (01) ==
PROVIDERS: Emergency Provider Emergency Medicine; PCP Family Medicine
DX: R10.31 Right lower quadrant pain (principal)
CPT/HCPCS: 74177; 80053; 81001; 81025; 85025; 99283; 99284; J7030; Q9967

== ENCOUNTER → 2025-07-08 17:20 | Outpatient (CLI) | payer OTHER, SELFPAY ==
[2025-07-08 18:29] LABS: HCG Quantitative /Beta subunit < 2.39 mIU/mL
== END ==
PROVIDERS: PCP Family Medicine; Referring Provider Family Medicine; Visit Provider Family Medicine
DX: Z32.00 Encounter for pregnancy test, result unknown (principal); N92.6 Irregular menstruation, unspecified
CPT/HCPCS: 36415; 84702